=== PATIENT | male | born 1980 | race Caucasian/White ===

== ENCOUNTER 2023-01-27 14:31 | Outpatient (AMB) | payer OTHER, SELFPAY ==
--- NOTE | 2023-01-27 14:50 | MHC.OFFWIV ---
Intake Vital Signs 01/27/23 14:53 BP 134/100 H Blood Pressure Location Lt brachial Position Sitting Pulse 86 Pulse Source Pulse Oximeter Temp 97.9 F Temp Source Temporal Artery Scan Pulse Oximetry (%) 98 Oxygen Delivery Method Room Air Intake Visit Reasons: CARD CLOTHIER blood sugar 272 2 days ago, leg swelling,dizzy Intake Note: Patient here for elevated blood sugar which was checked last , right lower leg swelling. Patient Tobacco Use Status: Never used Tobacco Allergies sulfamethoxazole [From Bactrim] Adverse Reaction (Mild, Verified 01/27/23 15:45) Palpitations trimethoprim [From Bactrim] Adverse Reaction (Mild, Verified 01/27/23 15:45) Palpitations Medication List - Last Reconciled 01/27/23 by Shad Harvey MD metformin 500 mg PO BID Do you need a note to return to daycare/school/sports/work: No HPI CARD CLOTHIER blood sugar 272 2 days ago, leg swelling,dizzy HPI Details 42-year-old male presents to the office for a sick visit. Patient reports that he is having increased thirst and frequency of urination. Complaining of increased pain in the right leg. PFSH Social History Patient Tobacco Use Status: Never used Tobacco Physical Exam Vital Signs: Last Vital Signs Temp 97.9 F 01/27/23 14:53 Pulse 86 01/27/23 14:53 BP 134/100 H 01/27/23 14:53 Pulse Ox 98 01/27/23 14:53 Oxygen Delivery Method Room Air 01/27/23 14:53 Const General: cooperative and healthy appearing Nutritional Appearance: well nourished Orientation/consciousness: patient oriented x3 Limitations: no limitations HEENT Head: Yes normal to inspection Eyes General: appearance normal, both eyes and all related structures Neck Neck: Yes normal visual inspection Chest Chest palpation & inspection: normal palpation of entire chest wall Resp Effort & Inspection: normal respiratory effort Neuro General: patient oriented x3 Results AMB Random Glucose (hemocue) AMB Random Glucose (hemocue) 291 mg/dL Last Edit by MIKEY Proctor on 01/27/23 15:06 Results Reviewed Results Reviewed: Laboratory Last Values Random Glu (Clinic) 291 mg/dL 01/27/23 15:04 Assessment & Plan Assessment & Plan (1) Type 2 diabetes mellitus without complications: Code(s): E11.9 - Type 2 diabetes mellitus without complications Plan: Metformin called in. Glucometer called in. Counseling on the disease done. Patient is new onset diabetic. Random blood sugar was 272. He has an appointment with [facility]. Orders: Orders AMB Random Glucose (hemocue) Today Z13.9 - Encounter for screening, unspecified Medications: New metformin 500 mg PO BID 60 tabs 0RF Coding Level of Care Code Est Pt Level 4 (58735) Diagnoses Type 2 diabetes mellitus without complications E11.9
[2023-01-27 14:53] VITALS: BP 134/100; PULSE 86; TEMP 36.6; O2SAT 98
== END 2023-01-27 15:39 | disposition home or self-care (01) ==
PROVIDERS: Visit Provider Internal Medicine
DX: E11.9 Type 2 diabetes mellitus without complications (principal)
CPT/HCPCS: 82948; 99214

== ENCOUNTER 2023-03-12 11:02 | Outpatient (AMB) | payer OTHER, SELFPAY ==
[2023-03-12 11:08] VITALS: BP 148/88; PULSE 81; RESP 16; TEMP 36.7; O2SAT 98; BMI 43.5
--- NOTE | 2023-03-12 11:08 | MHC.PC.OV ---
Vital Signs 03/12/23 11:08 03/12/23 12:05 Height 5 ft 10 in Weight 303 lb 6 oz BMI 43.5 BP 148/88 H 158/80 H Blood Pressure Location Lt brachial Rt brachial Position Sitting Sitting Respiration 16 Pulse 81 Pulse Source Pulse Oximeter Temp 98.1 F Temp Source Oral Pulse Oximetry (%) 98 Oxygen Delivery Method Room Air Intake Visit Reasons: est care Intake Note: Patient is here as new patient, with question of diabetes. He saw Dr. Ha in walk in. Allergies sulfamethoxazole [From Bactrim] Adverse Reaction (Mild, Verified 03/12/23 12:00) Palpitations trimethoprim [From Bactrim] Adverse Reaction (Mild, Verified 03/12/23 12:00) Palpitations Medication List - Last Reconciled 03/12/23 by Lanny Bro CNP metformin 500 mg PO BID Tobacco use date assessed: 03/12/23 Dental Screening Dental Screen Date: 03/12/23 Did you have a dental visit in the last 12 months?: No Did you have a dental problem in the last 6 months where you did not have access to dental care?: No Was dental information given to patient?: Yes HPI HPI Comments History of Present Illness Details 42-year-old male presents to [facility] care. He notes he has note been evaluated by a PCP in the past 10 years. He has not had blood work done in over 10 years. He has h/o diabetes. He was evaluated at [facility] walk-in clinic on 01/27/2023 for increased thirst, frequency of urination, and increased pain in his right leg. He was diagnosed with diabetes and was prescribed metformin 500 mg twice daily. He notes he has been taking the medication as prescribed. He offers no complaint and denies acute symptoms. 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 1. Little interest or pleasure in doing things: not at all 2. Feeling down, depressed, or hopeless: not at all 3. Trouble falling or staying asleep, or sleeping too much: not at all 4. Feeling tired or having little energy: not at all 5. Poor appetite or overeating: not at all 6. Feeling bad about yourself - or that you are a failure or have let yourself or your family down: not at all 7. Trouble concentrating on things, such as reading the newspaper or watching television: not at all 8. Moving or speaking so slowly that other people could have noticed. Or the opposite - being so fidgety or restless that you have been moving around a lot more than usual: not at all 9. Thoughts that you would be better off or of hurting yourself in some way: not at all Total score: 0 Source: Developed by Drs. Fran Pastrana, Ana Urbina, Abe Gaitan and colleagues, with an educational deann from [employer] Thrive Questionnaire I am a: Patient What is your living situation today?: I have a steady place to live Within the past 12 months, did the food you bought not last and you didn't have the money to get more?: Never true Within the past 12 months, did you worry whether your food would run out before you got money to buy more?: Never true Do you have trouble paying for medicines?: No Do you have trouble getting transportation to medical appointments?: No Do you have trouble paying your heating and electricity bill?: No Do you have trouble taking care of your child, family member or friend?: No Do you have trouble with day-to-day activities such as bathing, preparing meals, shopping, managing finances, etc.?: No Are you currently unemployed and looking for a job?: No Are you interested in more education?: No AUDIT C Alcohol Use Questionnaire (AUDIT-C) 1. How often do you have a drink containing alcohol?: Monthly or less 2. How many drinks containing alcohol do you have on a typical day when you are drinking?: 1 or 2 3. How often do you have six or more drinks on one occasion?: Never Total Score: 1 URIEL-7 AMB Questionnaire URIEL-7 Date URIEL - 7 assessed: 03/12/23 Feeling nervous, anxious, or on edge: 0 = Not at all Not being able to stop or control worryin = Not at all Worrying too much about different things: 0 = Not at all Trouble relaxin = Not at all Being so restless that it is hard to sit still: 0 = Not at all Becoming easily annoyed or irritable: 0 = Not at all Feeling afraid as if something awful might happen: 0 = Not at all Total URIEL-7 score (0-4 normal; 5-9 mild; 10-14 moderate; 15-21 severe): 0 Source: Developed by Drs. Fran Pastrana, Ana Urbina, Abe Gaitan and colleagues, with an educational deann from [employer] Review of Systems Const Details: Const Denies chills, Denies fatigue, Denies fever(s), Denies headache(s) and Denies weakness ENT Denies dizziness and Denies headache(s) Card Denies chest pain, Denies lightheadedness, Denies dyspnea and Denies other (Palpitations) Resp Denies cough, Denies dyspnea, Denies wheezing and Denies other ( shortness of breath) GI Denies abdominal pain, Denies melena, Denies hematochezia, Denies change in bowel habits, Denies dyspepsia and Denies nausea Denies hematuria and Denies dysuria Musc Denies abnormal gait, Denies myalgias, Denies arthralgias, Denies numbness and Denies tingling Skin/Breast Denies rash, Denies unusual bruising and Denies wounds Neuro Denies abnormal gait, Denies dizziness, Denies headache(s), Denies memory loss, Denies numbness, Denies Sensory deficit (Neuro), Denies tingling and Denies weakness Psych Denies anxiety, Denies depression, Denies memory loss Endo Denies cold intolerance, Denies fatigue, Denies heat intolerance, Denies polydipsia and Denies polyuria Aller/Immun Denies wheezing Physical exam (Primary Care) Vital Signs: Last Vital Signs Temp 98.1 F 03/12/23 11:08 Pulse 81 03/12/23 11:08 Resp 16 03/12/23 11:08 BP 148/88 H 09/07/23 11:08 Pulse Ox 98 03/12/23 11:08 Oxygen Delivery Method Room Air 03/12/23 11:08 BMI result Body Mass Index 43.5 Tobacco/Smoking Status: Tobacco use Status Tobacco use date assessed 03/12/23 03/12/23 11:27 Patient Tobacco Use Status Never used Tobacco 03/12/23 11:12 e-Cigarette/Vaping Use Never Used 03/12/23 11:27 PHQ-9: PHQ-9 Score PHQ-9: Total score 0 03/12/23 11:27 Const Other: General: no acute distress and well developed Nutritional Appearance: well nourished Orientation/consciousness: patient oriented x3 HENMT Head: Yes normocephalic and Yes atraumatic Eyes General: appearance normal, both eyes and all related structures Pupils: Equal, round and reactive pupils present EOM: EOMs intact bilaterally Resp Effort & Inspection: normal respiratory effort Auscultation: clear to auscultation bilaterally Cardio Rate: regular rate Rhythm: regular rhythm Heart sounds: S1 normal heart sound present, S2 normal heart sound present, no gallops, no murmurs and no rubs GI Palpation (GI): No Abdominal aortic bruit present, Soft to palpation, nontender, No hepatosplenomegaly present and No Rebound tenderness present Auscultation: normal bowel sounds General: Yes no CVA tenderness Back/Spine/Pelvis Back: no CVA tenderness Cervical Spine: cervical ROM normal and No Cervical spine tenderness Thoracic/Lumbar Spine: thoraco-lumbar ROM normal, No pain with thoraco-lumbar ROM, No thoracic spinal tenderness and No lumbar spinal tenderness Extrem General: Yes normal to inspection, No edema and No calf tenderness Skin General: warm and dry. Normal skin color. Normal skin turgor Lesions: no lesions Rashes: no rashes Trauma: no lacerations or abrasions Wounds: no wounds Nails: normal Neuro General: patient oriented x3, gait normal and no focal neuro deficit Cranial nerves: Yes Equal, round and reactive pupils present Cognition (Neuro): normal cognition Gait exam (Neuro): Normal gait present Sensory Exam: No Sensory deficit (Neuro) Psych Appearance: grossly normal Affect: normal affect Attitude: cooperative Thought process: Normal thought process present Results AMB Hemoglobin A1c AMB Hemoglobin A1c 10 % Last Edit by Jinny Wiggins CMA on 03/12/23 11:57 Assessment and Plan Assessment & Plan (1) Type 2 diabetes mellitus without complications: Code(s): E11.9 - Type 2 diabetes mellitus without complications Qualifiers: Diabetes mellitus [facility] insulin use: without [facility] use Qualified Code(s): E11.9 - Type 2 diabetes mellitus without complications Plan: His A1c today is 10.0%, above goal of less than 7.0% Trulicity ordered. Administer as prescribed Continue to take metformin as prescribed ADA diet and routine exercise encouraged Glucometer and supplies ordered. Advised to check his fasting and random blood sugar daily, record readings, and bring to next appointment Nutrition/dietitian referral made Referred to the nurse navigator for diabetes education Follow-up in 1 month or return sooner with symptoms or concerns Verbalized understanding and agreed with treatment plan. (2) Hypertension: Code(s): I10 - Essential (primary) hypertension Qualifiers: Hypertension type: primary hypertension Qualified Code(s): I10 - Essential (primary) hypertension Plan: Blood pressure is 150/80, above goal of less than 130/80 Lisinopril ordered. Take as prescribed Low-sodium diet and routine exercise encouraged Follow-up in 1 week with the nurse for blood pressure check in 1 month with PCP Return sooner with symptoms or concerns Verbalized understanding and agreed with treatment plan. (3) Laboratory tests ordered as part of a complete physical exam (CPE): Code(s): Z00.00 - Encounter for general adult medical examination without abnormal findings Plan: Fasting labs ordered as part of a complete physical exam. Advised to fast for at least 10 hours before getting labs drawn. May drink water Verbalized understanding and agreed with treatment plan. Orders: Orders AMB Hemoglobin A1c Today Z13.9 - Encounter for screening, unspecified Comprehensive [place]. Panel Fast Today E11.9 - Type 2 diabetes mellitus without complications, I10 - Essential (primary) hypertension, Z00.00 - Encounter for general adult medical examination without abnormal findings TSH reflex Free T4 Today Z00.00 - Encounter for general adult medical examination without abnormal findings UA CC w/rflx Micro + Cult Today E11.9 - Type 2 diabetes mellitus without complications Microalbumin, Random (w Creat) Today E11.9 - Type 2 diabetes mellitus without complications Lipid Panel Today Z00.00 - Encounter for general adult medical examination without abnormal findings AMB Hemoglobin A1c Today Z13.9 - Encounter for screening, unspecified Complete Blood Count Auto Diff Today E11.9 - Type 2 diabetes mellitus without complications, I10 - Essential (primary) hypertension, Z00.00 - Encounter for general adult medical examination without abnormal findings Referrals Nurse Navigator Referral E11.9 - Type 2 diabetes mellitus without complications Nutrition/Dietitian Referral E11.9 - Type 2 diabetes mellitus without complications Medications: New blood sugar diagnostic (FreeStyle Lite Strips) As directed TID 100 ea 4RF diabetes dulaglutide (Trulicity) 0.75 mg (0.5 mL) subcut QWEEK 30 days 2.5 mL 3RF blood-glucose meter (FreeStyle Lite Meter kit) As directed 1 ea 0RF diabetes lancets (FreeStyle Lancets) As directed 100 ea 4RF diabetes lisinopril 10 mg PO DAILY 30 tabs 3RF 30 days Coding Level of Care Code New Pt Level 3 (74295) Diagnoses Type 2 diabetes mellitus without complication, without long-term current use of insulin E11.9 Diabetes mellitus [facility] insulin use: without [facility] use Primary hypertension I10 Hypertension type: primary hypertension Laboratory tests ordered as part of a complete physical exam (CPE) Z00.00
[2023-03-12 12:05] VITALS: BP 158/80
== END 2023-03-12 12:35 | disposition home or self-care (01) ==
PROVIDERS: Visit Provider Nurse Practitioner Family
DX: E11.9 Type 2 diabetes mellitus without complications (principal); I10 Essential (primary) hypertension
CPT/HCPCS: 83036; 99203

== ENCOUNTER 2023-04-08 09:27 | Outpatient (REF) | payer OTHER, SELFPAY ==
[2023-04-08 11:13] LABS: MANUAL DIFF FLAG NO
[2023-04-08 11:25] LABS: Appearance Urine Clear; Color Urine Yellow; Glucose Urine UA 250 mg/dL (Negative); Leukocyte Esterase Urine Negative (Negative); Nitrite Urine Negative (Negative); Specific Gravity - Urine 1.015 (1.005-1.025); Urine Blood Negative (Negative); Urine Ketones Negative (Negative); Urine Protein Negative (Neg-Trace)
[2023-04-08 11:36] LABS: Basophils Percent Auto 0.4 % (0-2); Eosinophils Absolute Auto 0.1 X10*3/uL (0.0-0.4); Eosinophils Percent Auto 1.4 % (0-4); Hematocrit 47.4 % (42.0-52.0); Hemoglobin 15.2 g/dl (14.0-18.0); Imm Gran Abs Auto 0.02 X10*3/uL (0.00-0.03); Imm Gran Pct Auto 0.3 % (0.0-0.4); Lymphocytes Absolute Auto 1.7 X10*3/uL (1.2-4.9); Lymphocytes Percent Auto 22.3 % (20-40); Mean Corpuscular HGB Conc 32.1 g/dl (31.0-36.0); Mean Corpuscular Hemoglobin 27.5 pg (27.0-33.0); Mean Corpuscular Volume 85.9 fL (80.0-98.0); Mean Platelet Volume 13.1 fL (9.4-12.4); Monocytes Absolute Auto 0.5 X10*3/uL (0.1-1.2); Monocytes Percent Auto 6.6 % (2-11); Neutrophils Absolute Auto 5.4 x10*3/uL (2.0-8.3); Platelet Count 164 X10*3/uL (160-400); Red Blood Count 5.52 X10*6/uL (4.60-5.80); White Blood Count 7.8 X10*3/uL (4.8-10.8)
[2023-04-08 12:07] LABS: Alanine Aminotransferase 27 U/L (0-40); Albumin Level 4.2 g/dL (3.5-5.0); Alkaline Phosphatase 45 U/L (39-117); Anion Gap 11 (12-20); Aspartate Amino Transferase 17 U/L (5-37); Bilirubin Total 0.6 mg/dL (0.0-1.0); Blood Urea Nitrogen 16 mg/dL (9-16); Calcium 9.5 mg/dL (8.4-10.2); Carbon Dioxide 22 mmol/L (22-29); Chloride 109 mmol/L (96-108); Cholesterol 137 mg/dL (<200); Estimated Glomerular Filt Rate > 60; Glucose Fasting 160 mg/dL (60-99); HDL Cholesterol 37 mg/dL (>40); LDL Cholesterol Calculated 79 mg/dL (<100); Potassium 3.9 mmol/L (3.3-5.1); Sodium 138 mmol/L (135-145); Total Protein 6.8 g/dL (6.5-8.0); Triglycerides 109 mg/dL (<150)
[2023-04-08 12:15] LABS: TSH reflex Free T4 1.44 uIU/mL (0.32-4.0)
[2023-04-08 12:27] LABS: Microalbum/Creatinine Ratio Ur 19.6 ug/mg cr (<30)
== END 2023-04-08 09:28 | disposition home or self-care (01) ==
LOC: HO.WFDLDS 09:27
PROVIDERS: Visit Provider Nurse Practitioner Family
DX: Z00.00 Encounter for general adult medical examination without abnormal findings (principal); E11.9 Type 2 diabetes mellitus without complications; I10 Essential (primary) hypertension
CPT/HCPCS: 36415; 80053; 80061; 81003; 82043; 82570; 84443; 85025

== ENCOUNTER 2023-04-13 12:20 | Outpatient (AMB) | payer OTHER, SELFPAY ==
--- NOTE | 2023-04-13 12:22 | MHC.PC.OV ---
Vital Signs 04/13/23 12:24 Height 5 ft 10 in Weight 297 lb BMI 42.6 BP 130/78 Blood Pressure Location Rt brachial Position Sitting Respiration 20 Pulse 73 Pulse Source Pulse Oximeter Temp 98.1 F Temp Source Oral Pulse Oximetry (%) 96 Intake Visit Reasons: F/Up HTN, DM Intake Note: Patient is here to follow up on hypertension and diabetes. Allergies sulfamethoxazole [From Bactrim] Adverse Reaction (Mild, Verified 04/13/23 12:46) Palpitations trimethoprim [From Bactrim] Adverse Reaction (Mild, Verified 04/13/23 12:46) Palpitations Medication List - Last Reconciled 04/13/23 by Lanny Bro CNP blood sugar diagnostic (FreeStyle Lite Strips) As directed TID blood-glucose meter (FreeStyle Lite Meter kit) As directed dulaglutide (Trulicity) 0.75 mg (0.5 mL) subcut QWEEK 30 days lancets (FreeStyle Lancets) As directed lisinopril 20 mg PO DAILY 30 days metformin 500 mg PO BID Tobacco use date assessed: 04/13/23 HPI HPI Comments History of Present Illness Details 42-year-old male presents for hypertension and diabetes follow-up. He was diagnosed with diabetes at the [place] walk-in clinic in January 2023 He established care a month ago. His A1c was 10.0%. Trulicity was added to his diabetic regimen. He was diagnosed with hypertension and prescribed lisinopril. He is on metformin. He was referred to specimen technician/dietitian and nurse navigator. He admits to taking his medications as prescribed with no adverse reactions. He has also been monitoring his glucose at home which averages in 100s to a little over 200. He has no acute symptoms at this time. He states that he was seen by the nurse navigator who provided Diabetes Education. He notes that he has not been contacted by [facility] dietitian/nutrition He states that he has never had an eye exam. 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 Fran Pastrana, Ana Urbina, Abe Gaitan and colleagues, with an educational deann from [employer]. Review of Systems Const Details: Const Denies chills, Denies fatigue, Denies fever(s), Denies headache(s) and Denies weakness ENT Denies dizziness and Denies headache(s) Card Denies chest pain, Denies lightheadedness, Denies dyspnea and Denies other (Palpitations) Resp Denies cough, Denies dyspnea, Denies wheezing and Denies other ( shortness of breath) GI Denies abdominal pain, Denies melena, Denies hematochezia, Denies change in bowel habits, Denies dyspepsia and Denies nausea Denies hematuria and Denies dysuria Musc Denies abnormal gait, Denies myalgias, Denies arthralgias, Denies numbness and Denies tingling Skin/Breast Denies rash, Denies unusual bruising and Denies wounds Neuro Denies abnormal gait, Denies dizziness, Denies headache(s), Denies memory loss, Denies numbness, Denies Sensory deficit (Neuro), Denies tingling and Denies weakness Psych Denies anxiety, Denies depression, Denies memory loss Endo Denies cold intolerance, Denies fatigue, Denies heat intolerance, Denies polydipsia and Denies polyuria Aller/Immun Denies wheezing Physical exam (Primary Care) Vital Signs: Last Vital Signs Temp 98.1 F 04/13/23 12:24 Pulse 73 04/13/23 12:24 Resp 20 04/13/23 12:24 BP 130/78 04/13/23 12:24 Pulse Ox 96 04/13/23 12:24 BMI result Body Mass Index 42.6 Tobacco/Smoking Status: Tobacco use Status Tobacco use date assessed 04/13/23 04/13/23 12:28 Patient Tobacco Use Status Never used Tobacco 04/13/23 12:22 e-Cigarette/Vaping Use Never Used 04/13/23 12:22 Const Other: General: no acute distress and well developed Nutritional Appearance: well nourished Orientation/consciousness: patient oriented x3 [facility] Head: Yes normocephalic and Yes atraumatic Eyes General: appearance normal, both eyes and all related structures Pupils: Equal, round and reactive pupils present EOM: EOMs intact bilaterally Resp Effort & Inspection: normal respiratory effort Auscultation: clear to auscultation bilaterally Cardio Rate: regular rate Rhythm: regular rhythm Heart sounds: S1 normal heart sound present, S2 normal heart sound present, no gallops, no murmurs and no rubs GI Palpation (GI): No Abdominal aortic bruit present, Soft to palpation, nontender, No hepatosplenomegaly present and No Rebound tenderness present Auscultation: normal bowel sounds General: Yes no CVA tenderness Back/Spine/Pelvis Back: no CVA tenderness Cervical Spine: cervical ROM normal and No Cervical spine tenderness Thoracic/Lumbar Spine: thoraco-lumbar ROM normal, No pain with thoraco-lumbar ROM, No thoracic spinal tenderness and No lumbar spinal tenderness Extrem General: Yes normal to inspection, No edema and No calf tenderness Skin General: warm and dry. Normal skin color. Normal skin turgor Lesions: no lesions Rashes: no rashes Trauma: no lacerations or abrasions Wounds: no wounds Nails: normal Neuro General: patient oriented x3, gait normal and no focal neuro deficit Cranial nerves: Yes Equal, round and reactive pupils present Cognition (Neuro): normal cognition Gait exam (Neuro): Normal gait present Sensory Exam: No Sensory deficit (Neuro) Psych Appearance: grossly normal Affect: normal affect Attitude: cooperative Thought process: Normal thought process present Assessment and Plan Assessment & Plan (1) Type 2 diabetes mellitus without complications: Code(s): E11.9 - Type 2 diabetes mellitus without complications Qualifiers: Diabetes mellitus [employer] [facility] insulin use: without residential use Qualified Code(s): E11.9 - Type 2 diabetes mellitus without complications Plan: His A1c was 10.0% a month ago, above goal of less than 7.0% Continue to take Trulicity and metformin as prescribed ADA diet and routine exercise encouraged LDL is normal, 79 Will recheck A1c in 2 months Referred to Ophthalmology for a retinal exam Encouraged to continue to monitor blood glucose, record readings, and bring to his next appointment Follow-up with specimen technician/dietitian as scheduled Follow-up in a month for a complete physical exam Return sooner with symptoms or concerns Verbalized understanding and agreed with treatment plan. (2) Hypertension: Code(s): I10 - Essential (primary) hypertension Qualifiers: Hypertension type: primary hypertension Qualified Code(s): I10 - Essential (primary) hypertension Plan: Resting blood pressure is 130/78, slightly above goal of less than 130/80 Continue to take lisinopril as prescribed Low-sodium diet encouraged Will continue to monitor Verbalized understanding and agreed with treatment plan. (3) Morbid obesity with BMI of 40.0-44.9, adult: Code(s): E66.01 - Morbid (severe) obesity due to excess calories; Z68.41 - Body mass index [BMI] 40.0-44.9, adult Plan: Healthy diet and routine exercise encouraged He was referred to [facility] specimen technician/dietitian The MA reviewed the patient's chart and notes that the patient is scheduled with specimen technician/dietitian later this month. Patient notified Follow-up with with specimen technician/dietitian as scheduled Return with symptoms or concerns Verbalized understanding and agreed with treatment plan. (4) Low HDL (under 40): Code(s): E78.6 - Lipoprotein deficiency Plan: Recent lab results reviewed with the patient Unremarkable lab findings except for slightly low HDL level Advised to limit foods high in saturated fat and avoid foods high trans fat Routine exercise encouraged Verbalized understanding and agreed with treatment plan. Orders: Referrals Ophthalmology Referral E11.9 - Type 2 diabetes mellitus without complications Coding Level of Care Code Est Pt Level 3 (28893) Diagnoses Type 2 diabetes mellitus without complication, without long-term current use of insulin E11.9 Diabetes mellitus residential insulin use: without residential use Primary hypertension I10 Hypertension type: primary hypertension Morbid obesity with BMI of 40.0-44.9, adult E66.01; Z68.41 Low HDL (under 40) E78.6
[2023-04-13 12:24] VITALS: BP 130/78; PULSE 73; RESP 20; TEMP 36.7; O2SAT 96; BMI 42.6
== END 2023-04-13 13:07 | disposition home or self-care (01) ==
PROVIDERS: Visit Provider Nurse Practitioner Family
DX: E11.9 Type 2 diabetes mellitus without complications (principal); I10 Essential (primary) hypertension; E66.01 Morbid (severe) obesity due to excess calories; Z68.41 Body mass index [BMI] 40.0-44.9, adult; E78.6 Lipoprotein deficiency
CPT/HCPCS: 99213

== ENCOUNTER 2023-05-11 08:25 | Outpatient (AMB) | payer OTHER, SELFPAY ==
--- NOTE | 2023-05-11 08:32 | MHC.PC.OV ---
Vital Signs 05/11/23 08:33 Height 5 ft 10 in Weight 298 lb 4 oz BMI 42.8 BP 128/72 Blood Pressure Location Lt brachial Position Sitting Respiration 13 Pulse 88 Pulse Source Pulse Oximeter Temp 98.8 F Temp Source Oral Pulse Oximetry (%) 99 Oxygen Delivery Method Room Air Intake Visit Reasons: 1 month CPE Intake Note: Patient is here for a physical. Patient states he has not had a physical since high school. Patient reports no concerns for today's visit. Patient is requesting medication refills. Charge Poster Required: No Accompanied by: Self / Same As Patient Allergies sulfamethoxazole [From Bactrim] Adverse Reaction (Mild, Verified 05/11/23 08:52) Palpitations trimethoprim [From Bactrim] Adverse Reaction (Mild, Verified 05/11/23 08:52) Palpitations Medication List - Last Reconciled 05/11/23 by Lanny Bro CNP blood sugar diagnostic (FreeStyle Lite Strips) As directed TID blood-glucose meter (FreeStyle Lite Meter kit) As directed dulaglutide (Trulicity) 0.75 mg (0.5 mL) subcut QWEEK 30 days lancets (FreeStyle Lancets) As directed lisinopril 20 mg PO DAILY 30 days metformin 500 mg PO BID Tobacco use date assessed: 04/13/23 HPI HPI Comments History of Present Illness Details 42-year-old male presents for a complete physical exam. He established care in March and had routine blood work done. He has history of type 2 diabetes and hypertension. He admits to taking his medications as prescribed. He admits to making some healthy dietary choices. He denies formal exercise. He notes that he monitors his FBG and RBG and between 120-160. He offers no complaints denies acute symptoms at this time. He notes that he has not schedule an appointment with tax services specialist/dietitian and ophthalmology. 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 Cognitive needs: No Hearing needs: No Vision needs: No Questionnaire Thrive Questionnaire Date Thrive assessed: 05/11/23 I am a: Patient What is your living situation today?: I have a steady place to live Within the past 12 months, did the food you bought not last and you didn't have the money to get more?: Never true Within the past 12 months, did you worry whether your food would run out before you got money to buy more?: Never true Do you have trouble paying for medicines?: No Do you have trouble getting transportation to medical appointments?: No Do you have trouble paying your heating and electricity bill?: No Do you have trouble taking care of your child, family member or friend?: No Do you have trouble with day-to-day activities such as bathing, preparing meals, shopping, managing finances, etc.?: No Are you currently unemployed and looking for a job?: No Are you interested in more education?: No Please select the resources that you would like help with: None Currently or been in a relationship where the following occur: no concerns reported URIEL-7 AMB Questionnaire URIEL-7 Date URIEL - 7 assessed: 03/12/23 Source: Developed by Drs. Fran Pastrana, Ana Urbina, Abe Gaitan and colleagues, with an educational deann from [employer]. Review of Systems Const Details: Denies chills, Denies fatigue, Denies fever(s), Denies headache(s) and Denies weakness HEENT Denies change in vision, Denies dizziness, Denies headache(s), Denies hearing loss, Denies nasal congestion, Denies sinus pain, Denies sinus pressure and Denies sore throat Card Denies chest pain, Denies lightheadedness, Denies dyspnea and Denies other (palpitations) Resp Denies cough, Denies dyspnea and Denies wheezing GI Denies abdominal pain, Denies melena, Denies hematochezia, Denies change in bowel habits, Denies dyspepsia and Denies nausea Denies hematuria and Denies dysuria Musc Denies abnormal gait, Denies myalgias, Denies arthralgias, Denies numbness and Denies tingling Skin/Breast Denies rash, Denies unusual bruising and Denies wounds Neuro Denies abnormal gait, Denies dizziness, Denies headache(s), Denies memory loss, Denies numbness, Denies Sensory deficit (Neuro), Denies tingling and Denies weakness Psych Denies anxiety, Denies depression and Denies memory loss Endo Denies cold intolerance, Denies fatigue, Denies heat intolerance, Denies polydipsia and Denies polyuria Param/Lymph Denies easy bleeding and Denies easy bruising Aller/Immun Denies wheezing Physical exam (Primary Care) Vital Signs: Last Vital Signs Temp 98.8 F 05/11/23 08:33 Pulse 88 05/11/23 08:33 Resp 13 05/11/23 08:33 BP 128/72 05/11/23 08:33 Pulse Ox 99 05/11/23 08:33 Oxygen Delivery Method Room Air 05/11/23 08:33 BMI result Body Mass Index 42.8 Tobacco/Smoking Status: Tobacco use Status Tobacco use date assessed 04/13/23 05/11/23 08:32 Patient Tobacco Use Status Never used Tobacco 05/11/23 08:32 e-Cigarette/Vaping Use Never Used 05/11/23 08:32 Thrive Assessment: Date of Thrive Assessment Date Thrive assessed 05/11/23 05/11/23 08:49 Currently or been in a relationship where the following occur: no concerns reported Const Other: General: no acute distress, well developed, alert and awake Nutritional Appearance: well nourished Orientation/consciousness: patient oriented x3 [facility] Head: Yes normocephalic and Yes atraumatic Ears: hearing grossly normal bilaterally and TM's normal bilaterally General nose exam: Normal external nose present and Normal nares present Mouth: Normal oral and palatal mucosa present and moist mucous membranes Teeth and gingiva: dentition normal Throat: Yes oropharynx normal Eyes Pupils: Equal, round and reactive pupils present and Pupil accommodation reflex normal EOM: EOMs intact bilaterally Neck Neck: Yes normal visual inspection, Yes no lymphadenopathy and Yes trachea midline Thyroid: Thyroid normal Carotids: no bruits Lymphatic: no lymphadenopathy noted Chest Chest palpation & inspection: normal inspection of the chest Resp Effort & Inspection: normal respiratory effort Auscultation: clear to auscultation bilaterally Cardio Rate: regular rate Rhythm: regular rhythm Heart sounds: S1 normal heart sound present, S2 normal heart sound present, no gallops, no murmurs and no rubs Bruits: no abdominal aortic bruits and no carotid bruits GI Palpation (GI): No Abdominal aortic bruit present, Soft to palpation, nontender, No hepatosplenomegaly present and No Rebound tenderness present Auscultation: normal bowel sounds General: Yes no CVA tenderness Back/Spine/Pelvis Back: no CVA tenderness Cervical Spine: cervical ROM normal and No Cervical spine tenderness Thoracic/Lumbar Spine: thoraco-lumbar ROM normal, No pain with thoraco-lumbar ROM, No thoracic spinal tenderness and No lumbar spinal tenderness Skin General: warm and dry. Normal skin color. Normal skin turgor Lesions: no lesions Rashes: no rashes Trauma: no lacerations or abrasions Wounds: no wounds Nails: normal Neuro General: patient oriented x3, gait normal and CN's II-XI intact bilaterally Cranial nerves: Yes Equal, round and reactive pupils present Cognition (Neuro): normal cognition Gait exam (Neuro): Normal gait present Motor exam (neuro): 5/5 motor strength present throughout Sensory Exam: No Sensory deficit (Neuro) Deep tendon reflexes (DTR's): Right patellar reflex intensity grade: 2+ and Left patellar reflex intensity grade: 2+ Extrem General: Yes normal to inspection, No edema and No calf tenderness Psych Appearance: grossly normal Affect: normal affect Attitude: cooperative Thought process: Normal thought process present Assessment and Plan Assessment & Plan (1) Normal physical examination, routine: Code(s): Z00.00 - Encounter for general adult medical examination without abnormal findings Plan: No significant physical restrictions or limitations noted Advised to follow-up for diabetes and hypertension next month Encouraged to call and schedule appointment with tax services specialist/dietitian and marine diver Return sooner with symptoms or concerns Verbalized understanding and agreed with treatment plan. (2) Hypertension: Code(s): I10 - Essential (primary) hypertension Qualifiers: Hypertension type: primary hypertension Qualified Code(s): I10 - Essential (primary) hypertension Plan: Blood pressure is 120/72, within goal of less than 130/80 Continue to take lisinopril as prescribed Low-sodium diet and routine exercise encouraged Follow-up in 1 month or return sooner with symptoms or concerns Verbalized understanding and agreed with treatment plan. (3) Type 2 diabetes mellitus without complications: Code(s): E11.9 - Type 2 diabetes mellitus without complications Qualifiers: Diabetes mellitus penitentiary insulin use: without intermediate card tender use Qualified Code(s): E11.9 - Type 2 diabetes mellitus without complications Plan: He notes that he monitors his FBG and RBG and between 120-160. Continue with current treatment regimen ADA diet and routine exercise encouraged Follow-up next month. A1c will be checked Return sooner with symptoms or concerns Verbalized understanding and agreed with treatment plan. Medications: Changed From metformin 500 mg PO BID 60 tabs 0RF To metformin 500 mg PO BID 30 days 60 tabs 3RF Refilled lisinopril 20 mg PO DAILY 30 days 30 tabs 3RF Coding Level of Care Code Est Pt Level 3 (83852) Est Pt Prev Care 40-64y(43036) Diagnoses Normal physical examination, routine Z00.00 Primary hypertension I10 Hypertension type: primary hypertension Type 2 diabetes mellitus without complication, without long-term current use of insulin E11.9 Diabetes mellitus intermediate card tender insulin use: without penitentiary use
[2023-05-11 08:33] VITALS: BP 128/72; PULSE 88; RESP 13; TEMP 37.1; O2SAT 99; BMI 42.8
== END 2023-05-11 09:11 | disposition home or self-care (01) ==
PROVIDERS: PCP Nurse Practitioner Family; Visit Provider Nurse Practitioner Family
DX: Z00.00 Encounter for general adult medical examination without abnormal findings (principal); I10 Essential (primary) hypertension; E11.9 Type 2 diabetes mellitus without complications
CPT/HCPCS: 99396

== ENCOUNTER 2023-06-11 13:53 | Outpatient (AMB) | payer OTHER, SELFPAY ==
[2023-06-11 14:08] VITALS: BMI 42.1
--- NOTE | 2023-06-11 14:08 | A.OFFVIS_ITS ---
Intake VS Expanded 06/11/23 14:08 06/11/23 14:16 Height 5 ft 10 in 5 ft 10 in Weight 293 lb 10.491 oz 294 lb BMI 42.1 42.2 Intake Visit Reasons: DM/lvm Allergies sulfamethoxazole [From Bactrim] Adverse Reaction (Mild, Verified 06/23/23 10:19) Palpitations trimethoprim [From Bactrim] Adverse Reaction (Mild, Verified 06/23/23 10:19) Palpitations HPI Nutrition Presentation Details Pt presents for MNT for T2DM and morbid obesity. The Pt was referred by Dr. Levine, PCP Food frequency fruits: 0/d vegetables : 4 serving/wk Dairy: 4+ (cheese mostly) protein food: poultry/beef/eggs starches > 30 servings beverages: water/juice/diet sodas empty christian foods: 4+ physical activity: daily life ETOH/SMoking__-- MVI-no [facility].Jeor Equation Height 5 ft 10 in Weight 294 lb Resting Metabolic Rate 2246.76 Calculated Activity Level Sedentary Calories Needed to Maintain Weight 2696.11 Diagnosis Nutrition problem #1 food nutri know defi As related to (etiology) #1 diagnosis As evidenced by (sign/symptom) #1 no prior educ - nutri rec Monitoring/Goals Nutrition problem monitoring level of knowledge/skill, total CHO intake and weight Nutrition goal/outcome list 3 CHO foods and wt loss 5lbs in 2 months Outcome progress verbalized understanding Learning/Education Stages of change preparation Educational materials provided Yes (meal planning) Most Recent Diabetes Results: Microalb/Creat Ratio 19.6 ug/mg cr (<30) 04/08/23 Cholesterol 137 mg/dL (<200) 04/08/23 HDL Cholesterol 37 mg/dL (>40) L 04/08/23 Triglycerides 109 mg/dL (<150) 04/08/23 Creatinine 0.90 mg/dL (0.5-1.4) 04/08/23 Blood Urea Nitrogen 16 mg/dL (9-16) 04/08/23 Sodium 138 mmol/L (135-145) 04/08/23 Potassium 3.9 mmol/L (3.3-5.1) 04/08/23 Chloride 109 mmol/L (96-108) H 04/08/23 Carbon Dioxide 22 mmol/L (22-29) 04/08/23 Calcium 9.5 mg/dL (8.4-10.2) 04/08/23 AST 17 U/L (5-37) 04/08/23 ALT 27 U/L (0-40) 04/08/23 Total Protein 6.8 g/dL (6.5-8.0) 04/08/23 Albumin 4.2 g/dL (3.5-5.0) 04/08/23 PFSH Medical History Type 2 diabetes mellitus Surgical History No pertinent past surgical history Family History Brother Diabetes Paternal Grandmother Diabetes Father Diabetes Social History Housing: Apartment Patient Tobacco Use Status: Never used Tobacco e-Cigarette/Vaping Use: Never Used service: No Current occupational status: employed 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 Cognitive needs: No Hearing needs: No Vision needs: No Assessment & Plan Assessment & Plan (1) Type 2 diabetes mellitus without complications: Code(s): E11.9 - Type 2 diabetes mellitus without complications Qualifiers: Diabetes mellitus cash accounting clerk insulin use: without long-term use Qualified Code(s): E11.9 - Type 2 diabetes mellitus without complications Plan: wt: 134 kg ( 06/2023) Est kcal needs as per MSJ: 2700 (40% carb, 30% protein/fat) Est fluid needs as per 30 ml/d:4000 Est prot per day as per 1 g/kg bw: 134 Recommend fiber intake : 8-10 g per day and gradually increase to 25-28 g per day for women and 35-38 g for men or as tolerated Recommend sodium intake per day : less than 2000 mg Educated patient on: ( R = reviewed V = verbalizes understanding N/R = needs review N/A = not applicable * Food sources of carbohydrate, adequate serving sizes and its role in various health conditions: R * Differences between complex carbohydrates a simple carbohydrates, role of fiber in diet: R * Differences between types of fats and role in diet (mono on saturated fat fatty acids, saturated fatty acids, trans fats): NR * Food sources of sodium in salt and healthy modifications for heart health in kidney health: NR * Vitamins and minerals: R * Healthy plate method concept: R * Physical activity: Benefits a precaution: R * Hypoglycemia protocol (rule of 15): NR * Dietary prevention of Hyperglycemia: R (2) Morbid obesity with BMI of 40.0-44.9, adult: Code(s): E66.01 - Morbid (severe) obesity due to excess calories; Z68.41 - Body mass index [BMI] 40.0-44.9, adult Plan Work on reducing total carbs to less than 90 g at meals (3 per day ) and 0-20 g as snack no more than 2 a day Patient Instructions: Work on reducing total carbohydrate per meal to 90g following healthy plate meth od read food labels Keep hydrated by having water with meals/snack practice mindful eating strategies Coding Level of Care Code Nutr Indiv Intake (10281) Diagnoses Type 2 diabetes mellitus without complication, without long-term current use of insulin E11.9 Diabetes mellitus cash accounting clerk insulin use: without long-term use Morbid obesity with BMI of 40.0-44.9, adult E66.01; Z68.41 Time Spent (min) 40
[2023-06-23 14:57] VITALS: BMI 42.2
== END 2023-06-11 14:44 | disposition home or self-care (01) ==
PROVIDERS: PCP Nurse Practitioner Family; Visit Provider Dietitian, Registered
DX: E11.9 Type 2 diabetes mellitus without complications (principal); E66.01 Morbid (severe) obesity due to excess calories; Z68.41 Body mass index [BMI] 40.0-44.9, adult

== ENCOUNTER → 2023-06-11 13:53 | Outpatient (BNVA) | payer OTHER, SELFPAY | PROVIDERS: PCP Nurse Practitioner Family; Visit Provider Dietitian, Registered | DX: E11.9 Type 2 diabetes mellitus without complications (principal); E66.01 Morbid (severe) obesity due to excess calories; Z68.41 Body mass index [BMI] 40.0-44.9, adult; Z71.3 Dietary counseling and surveillance | CPT/HCPCS: 97802 ==

== ENCOUNTER 2023-06-23 09:56 | Outpatient (AMB) | payer OTHER, SELFPAY ==
[2023-06-23 10:03] VITALS: BP 126/74; PULSE 91; RESP 13; TEMP 36.5; O2SAT 99; BMI 42.2
--- NOTE | 2023-06-23 10:03 | A.OFFPC_ITS ---
Vital Signs 06/23/23 10:03 Height 5 ft 10 in Weight 294 lb 4 oz BMI 42.2 BP 126/74 Blood Pressure Location Rt brachial Position Sitting Respiration 13 Pulse 91 Pulse Source Pulse Oximeter Temp 97.7 F Temp Source Temporal Artery Scan Pulse Oximetry (%) 99 Oxygen Delivery Method Room Air Intake Visit Reasons: DM, HTN Neck Pinner Required: No Accompanied by: Self / Same As Patient Allergies sulfamethoxazole [From Bactrim] Adverse Reaction (Mild, Verified 06/23/23 10:19) Palpitations trimethoprim [From Bactrim] Adverse Reaction (Mild, Verified 06/23/23 10:19) Palpitations Medication List - Last Reconciled 06/23/23 by Lanny Bro CNP blood sugar diagnostic (FreeStyle Lite Strips) As directed TID blood-glucose meter (FreeStyle Lite Meter kit) As directed dulaglutide (Trulicity) 0.75 mg (0.5 mL) subcut QWEEK 30 days lancets (FreeStyle Lancets) As directed lisinopril 20 mg PO DAILY 30 days metformin 500 mg PO BID 30 days Tobacco use date assessed: 04/13/23 Dental Screening Dental Screen Date: 06/23/23 Did you have a dental visit in the last 12 months?: No Did you have a dental problem in the last 6 months where you did not have access to dental care?: No Was dental information given to patient?: Yes HPI HPI Comments History of Present Illness Details 42-year-old male presents for hypertensi on and diabetes follow-up His last A1c in 03/12/2023 was 10.0% He admits to taking his medications as prescribed without adverse reactions He offers no complaints and denies acute symptoms at this time He spoke with the nurse navigator. He is currently followed by 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 Fran Pastrana, Ana Urbina, Abe Gaitan and colleagues, with an educational deann from [employer]. Review of Systems Const Details: Const Denies chills, Denies fatigue, Denies fever(s), Denies headache(s) and Denies weakness ENT Denies dizziness and Denies headache(s) Card Denies chest pain, Denies lightheadedness, Denies dyspnea and Denies other (Palpitations) Resp Denies cough, Denies dyspnea, Denies wheezing and Denies other ( shortness of breath) GI Denies abdominal pain, Denies melena, Denies hematochezia, Denies change in bowel habits, Denies dyspepsia and Denies nausea Denies hematuria and Denies dysuria Musc Denies abnormal gait, Denies myalgias, Denies arthralgias, Denies numbness and Denies tingling Skin/Breast Denies rash, Denies unusual bruising and Denies wounds Neuro Denies abnormal gait, Denies dizziness, Denies headache(s), Denies memory loss, Denies numbness, Denies Sensory deficit (Neuro), Denies tingling and Denies weakness Psych Denies anxiety, Denies depression, Denies memory loss Endo Denies cold intolerance, Denies fatigue, Denies heat intolerance, Denies polydipsia and Denies polyuria Aller/Immun Denies wheezing Physical exam (Primary Care) Vital Signs: Last Vital Signs Temp 97.7 F 06/23/23 10:03 Pulse 91 06/23/23 10:03 Resp 13 06/23/23 10:03 BP 126/74 06/23/23 10:03 Pulse Ox 99 06/23/23 10:03 Oxygen Delivery Method Room Air 06/23/23 10:03 BMI result Body Mass Index 42.2 Tobacco/Smoking Status: Tobacco use Status Tobacco use date assessed 04/13/23 06/23/23 10:14 Patient Tobacco Use Status Never used Tobacco 06/23/23 10:14 e-Cigarette/Vaping Use Never Used 06/23/23 10:14 Thrive Assessment: Date of Thrive Assessment Date Thrive assessed 05/11/23 06/23/23 10:14 Const Other: General: no acute distress and well developed Nutritional Appearance: well nourished Orientation/consciousness: patient oriented x3 [facility]EN[facility] Head: Yes normocephalic and Yes atraumatic Eyes General: appearance normal, both eyes and all related structures Pupils: Equal, round and reactive pupils present EOM: EOMs intact bilaterally Resp Effort & Inspection: normal respiratory effort Auscultation: clear to auscultation bilaterally Cardio Rate: regular rate Rhythm: regular rhythm Heart sounds: S1 normal heart sound present, S2 normal heart sound present, no gallops, no murmurs and no rubs GI Palpation (GI): No Abdominal aortic bruit present, Soft to palpation, nontender, No hepatosplenomegaly present and No Rebound tenderness present Auscultation: normal bowel sounds General: Yes no CVA tenderness Back/Spine/Pelvis Back: no CVA tenderness Cervical Spine: cervical ROM normal and No Cervical spine tenderness Thoracic/Lumbar Spine: thoraco-lumbar ROM normal, No pain with thoraco-lumbar ROM, No thoracic spinal tenderness and No lumbar spinal tenderness Extrem General: Yes normal to inspection, No edema and No calf tenderness Skin General: warm and dry. Normal skin color. Normal skin turgor Lesions: no lesions Rashes: no rashes Trauma: no lacerations or abrasions Wounds: no wounds Nails: normal Neuro General: patient oriented x3, gait normal and no focal neuro deficit Cranial nerves: Yes Equal, round and reactive pupils present Cognition (Neuro): normal cognition Gait exam (Neuro): Normal gait present Sensory Exam: No Sensory deficit (Neuro) Psych Appearance: grossly normal Affect: normal affect Attitude: cooperative Thought process: Normal thought process present Results AMB Hemoglobin A1c AMB Hemoglobin A1c 6.7 % Last Edit by Dinorah Lopez MA on 06/23/23 10:31 Assessment and Plan Assessment & Plan (1) Type 2 diabetes mellitus without complications: Code(s): E11.9 - Type 2 diabetes mellitus without complications Qualifiers: Diabetes mellitus skilled nursing insulin use: without skilled nursing use Qualified Code(s): E11.9 - Type 2 diabetes mellitus without complications Plan: A1c today is 6.7%, within goal of less than 7.0%. Previous A1c was 10.0% Recent LDL is 72 and HDL is 37 Recent urine microalbumin/creatinine ratio is 19.0% Continue current treatment regimen Advised to limit foods high in saturated fat and avoid foods high trans fat Routine exercise encouraged Continue follow-up with diesel trailer mechanic/dietitian as planned Encouraged to schedule ophthalmology appointment with Ophthalmology Will recheck lipid panel. Advised to fast for 10-12 hours, may drink water only, and get blood work done before his next visit Follow-up in 3 months or return sooner with symptoms or concerns Verbalized understanding and agreed with treatment plan (2) Hypertension: Code(s): I10 - Essential (primary) hypertension Qualifiers: Hypertension type: primary hypertension Qualified Code(s): I10 - Essential (primary) hypertension Plan: Blood pressure is 126/74, within goal of less than 130/80 Continue to take lisinopril as prescribed Low-sodium diet encouraged Follow-up in 3 months Verbalized understanding and agreed with treatment plan Orders: Orders Hemoglobin A1c Today E11.9 - Type 2 diabetes mellitus without complications Lipid Panel 3 Months E11.9 - Type 2 diabetes mellitus without complications Coding Level of Care Code Est Pt Level 3 (99888) Diagnoses Type 2 diabetes mellitus without complication, without long-term current use of insulin E11.9 Diabetes mellitus financial services agent insulin use: without skilled nursing use Primary hypertension I10 Hypertension type: primary hypertension
== END 2023-06-23 10:37 | disposition home or self-care (01) ==
PROVIDERS: PCP Nurse Practitioner Family; Visit Provider Nurse Practitioner Family
DX: E11.9 Type 2 diabetes mellitus without complications (principal); I10 Essential (primary) hypertension
CPT/HCPCS: 83036; 99213

== ENCOUNTER 2023-08-18 09:30 | Outpatient (AMB) | payer OTHER, SELFPAY ==
[2023-08-18 09:35] VITALS: BMI 42.5
--- NOTE | 2023-08-18 09:35 | A.OFFVIS_ITS ---
Intake VS Expanded 08/18/23 09:35 Height 5 ft 10 in Weight 296 lb 8.348 oz BMI 42.5 Intake Visit Reasons: t2dm/CONFIRMED Allergies sulfamethoxazole [From Bactrim] Adverse Reaction (Mild, Verified 06/23/23 10:19) Palpitations trimethoprim [From Bactrim] Adverse Reaction (Mild, Verified 06/23/23 10:19) Palpitations HPI Nutrition Presentation Details Pt presents for MNT f/u for T2DM dx around 03/2023. Pt reports working on having 3 meals per day , choosing lower sugar snacks, often higher in protein. Pt reports having long hx of working on weight loss. Pt reports he was >350 lbs over 10 yrs ago. Typical meal pattern B: oatmeal or cereal 2 % (choosing low sugar cereals) L: mixed nuts, water (chips, peanut butter crackers, cheese crackers ) Dinner : home made meal chicken , turkey, potato , baked [place] fries, ketchup (no sugar added) Not including non starchy vegetables physical activity: none additional to that at work ETOH: -- smoking -denies BG- not monitoring , has glucometer Most Recent Diabetes Results: Microalb/Creat Ratio 19.6 ug/mg cr (<30) 04/08/23 Cholesterol 137 mg/dL (<200) 04/08/23 HDL Cholesterol 37 mg/dL (>40) L 04/08/23 Triglycerides 109 mg/dL (<150) 04/08/23 Creatinine 0.90 mg/dL (0.5-1.4) 04/08/23 Blood Urea Nitrogen 16 mg/dL (9-16) 04/08/23 Sodium 138 mmol/L (135-145) 04/08/23 Potassium 3.9 mmol/L (3.3-5.1) 04/08/23 Chloride 109 mmol/L (96-108) H 04/08/23 Carbon Dioxide 22 mmol/L (22-29) 04/08/23 Calcium 9.5 mg/dL (8.4-10.2) 04/08/23 AST 17 U/L (5-37) 04/08/23 ALT 27 U/L (0-40) 04/08/23 Total Protein 6.8 g/dL (6.5-8.0) 04/08/23 Albumin 4.2 g/dL (3.5-5.0) 04/08/23 [facility] Medical History Type 2 diabetes mellitus Surgical History No pertinent past surgical history Family History Brother Diabetes Paternal Grandmother Diabetes Father Diabetes Social History Housing: Apartment Patient Tobacco Use Status: Never used Tobacco e-Cigarette/Vaping Use: Never Used service: No Current occupational status: employed 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 Cognitive needs: No Hearing needs: No Vision needs: No Assessment & Plan Assessment & Plan (1) Type 2 diabetes mellitus without complications: Code(s): E11.9 - Type 2 diabetes mellitus without complications Qualifiers: Diabetes mellitus intermodal customer service insulin use: without intermodal customer service use Qualified Code(s): E11.9 - Type 2 diabetes mellitus without complications Plan: wt: 134 kg ( 06/2023) Est kcal needs as per MSJ: 2700 (40% carb, 30% protein/fat) Est fluid needs as per 30 ml/d:4000 Est prot per day as per 1 g/kg bw: 134 Recommend fiber intake : 8-10 g per day and gradually increase to 25-28 g per day for women and 35-38 g for men or as tolerated Recommend sodium intake per day : less than 2000 mg Educated patient on: ( R = reviewed V = verbalizes understanding N/R = needs review N/A = not applicable * Food sources of carbohydrate, adequate serving sizes and its role in various health conditions: R * Differences between complex carbohydrates a simple carbohydrates, role of fi sonya in diet, fiber sources of foods, fiber and satiety: R * Differences between types of fats and role in diet (mono on saturated fat fatty acids, saturated fatty acids, trans fats): NR * Food sources of sodium in salt and healthy modifications for heart health in kidney health: NR * Vitamins and minerals: R * Healthy plate method concept: R * Physical activity: Benefits a precaution: R * Hypoglycemia protocol (rule of 15): NR * Dietary prevention of Hyperglycemia: R (2) Morbid obesity with BMI of 40.0-44.9, adult: Code(s): E66.01 - Morbid (severe) obesity due to excess calories; Z68.41 - Body mass index [BMI] 40.0-44.9, adult Plan Work on reducing total carbs to less than 90 g at meals (3 per day ) and 0-20 g as snack no more than 2 a day Patient Instructions: Continue working on increasing physical activity, even if 10 additional minutes in the evening include high fiber foods (salads, green delgado, try 1 tbsp of fiber supplement in 8-10oz of water/low sugar beverage before dinner ) work on weight loss- goal 4 lbs weight loss by next follow up in 3 months Coding Level of Care Code Nutr Indiv Subseq (71483) Diagnoses Type 2 diabetes mellitus without complication, without long-term current use of insulin E11.9 Diabetes mellitus senior living insulin use: without intermodal customer service use Morbid obesity with BMI of 40.0-44.9, adult E66.01; Z68.41 Time Spent (min) 30
== END 2023-08-18 09:59 | disposition home or self-care (01) ==
PROVIDERS: PCP Nurse Practitioner Family; Visit Provider Dietitian, Registered
DX: E11.9 Type 2 diabetes mellitus without complications (principal); E66.01 Morbid (severe) obesity due to excess calories; Z68.41 Body mass index [BMI] 40.0-44.9, adult

== ENCOUNTER → 2023-08-18 09:30 | Outpatient (BNVA) | payer OTHER, SELFPAY | PROVIDERS: PCP Nurse Practitioner Family; Visit Provider Dietitian, Registered | DX: E11.9 Type 2 diabetes mellitus without complications (principal); Z71.3 Dietary counseling and surveillance | CPT/HCPCS: 97803 ==

== ENCOUNTER 2023-09-22 09:20 | Outpatient (REF) | payer OTHER, SELFPAY ==
[2023-09-22 11:55] LABS: Estimated Average Glucose 148 mg/dL; Hemoglobin A1c % 6.8 % (<6.0)
[2023-09-22 12:30] LABS: Cholesterol 155 mg/dL (<200); HDL Cholesterol 42 mg/dL (>40); LDL Cholesterol Calculated 88 mg/dL (<100); Triglycerides 129 mg/dL (<150)
== END 2023-09-22 09:21 | disposition home or self-care (01) ==
LOC: HO.WFDLDS 09:20
PROVIDERS: Visit Provider Nurse Practitioner Family
DX: E11.9 Type 2 diabetes mellitus without complications (principal)
CPT/HCPCS: 36415; 80061; 83036

== ENCOUNTER 2023-09-28 09:48 | Outpatient (AMB) | payer OTHER, SELFPAY ==
--- NOTE | 2023-09-28 09:55 | MHC.PC.OV ---
Vital Signs 09/28/23 09:56 Height 5 ft 10 in Weight 297 lb 8 oz BMI 42.7 BP 130/70 Blood Pressure Location Rt brachial Position Sitting Respiration 13 Pulse 90 Pulse Source Pulse Oximeter Temp 97.4 F Temp Source Temporal Artery Scan Pulse Oximetry (%) 98 Oxygen Delivery Method Room Air Intake Visit Reasons: DM, HTN Intake Note: Patient states that trulicity was canceled and put back into stock and needs to be resent and also needs refill on metformin. Psychological Tests Sales Agent Required: No Accompanied by: Self / Same As Patient Allergies sulfamethoxazole [From Bactrim] Adverse Reaction (Mild, Verified 09/28/23 10:02) Palpitations trimethoprim [From Bactrim] Adverse Reaction (Mild, Verified 09/28/23 10:02) Palpitations Tobacco use date assessed: 04/13/23 Dental Screening Dental Screen Date: 09/28/23 Did you have a dental visit in the last 12 months?: No Did you have a dental problem in the last 6 months where you did not have access to dental care?: No Was dental information given to patient?: Yes HPI HPI Comments History of Present Illness Details 42-year-old male presents for hypertension and diabetes follow-up His current A1c on 09/21/2022 his 6.8%. His last A1c was 6.7%. Recent LDL is 88 He admits to taking his medications as prescribed without adverse reactions He offers no complaints and denies acute symptoms at this time He admits to making healthy lifestyle choices, including limiting carbs and walking He spoke with the nurse navigator. He is currently followed by [facility] network solutions architect/dietitian. He is currently followed by [facility] network solutions architect/dietitian He has not called ophthalmology to schedule his diabetic retinal exam. 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 Fran Pastrana, Ana Urbina, Abe Gaitan and colleagues, with an educational deann from [employer]. Review of Systems Const Details: Const Denies chills, Denies fatigue, Denies fever(s), Denies headache(s) and Denies weakness ENT Denies dizziness and Denies headache(s) Card Denies chest pain, Denies lightheadedness, Denies dyspnea and Denies other (Palpitations) Resp Denies cough, Denies dyspnea, Denies wheezing and Denies other ( shortness of breath) GI Denies abdominal pain, Denies melena, Denies hematochezia, Denies change in bowel habits, Denies dyspepsia and Denies nausea Denies hematuria and Denies dysuria Musc Denies abnormal gait, Denies myalgias, Denies arthralgias, Denies numbness and Denies tingling Skin/Breast Denies rash, Denies unusual bruising and Denies wounds Neuro Denies abnormal gait, Denies dizziness, Denies headache(s), Denies memory loss, Denies numbness, Denies Sensory deficit (Neuro), Denies tingling and Denies weakness Psych Denies anxiety, Denies depression, Denies memory loss Endo Denies cold intolerance, Denies fatigue, Denies heat intolerance, Denies polydipsia and Denies polyuria Aller/Immun Denies wheezing Physical exam (Primary Care) Vital Signs: Last Vital Signs Temp 97.4 F 09/28/23 09:56 Pulse 90 09/28/23 09:56 Resp 13 09/28/23 09:56 BP 130/70 09/28/23 09:56 Pulse Ox 98 09/28/23 09:56 Oxygen Delivery Method Room Air 09/28/23 09:56 BMI result Body Mass Index 42.7 Tobacco/Smoking Status: Tobacco use Status Tobacco use date assessed 04/13/23 06/23/23 10:14 Patient Tobacco Use Status Never used Tobacco 06/23/23 10:14 e-Cigarette/Vaping Use Never Used 06/23/23 10:14 Thrive Assessment: Date of Thrive Assessment Date Thrive assessed 05/11/23 06/23/23 10:14 Const Other: General: no acute distress and well developed Nutritional Appearance: well nourished Orientation/consciousness: patient oriented x3 HENMT Head: Yes normocephalic and Yes atraumatic Eyes General: appearance normal, both eyes and all related structures Pupils: Equal, round and reactive pupils present EOM: EOMs intact bilaterally Resp Effort & Inspection: normal respiratory effort Auscultation: clear to auscultation bilaterally Cardio Rate: regular rate Rhythm: regular rhythm Heart sounds: S1 normal heart sound present, S2 normal heart sound present, no gallops, no murmurs and no rubs GI Palpation (GI): No Abdominal aortic bruit present, Soft to palpation, nontender, No hepatosplenomegaly present and No Rebound tenderness present Auscultation: normal bowel sounds General: Yes no CVA tenderness Back/Spine/Pelvis Back: no CVA tenderness Cervical Spine: cervical ROM normal and No Cervical spine tenderness Thoracic/Lumbar Spine: thoraco-lumbar ROM normal, No pain with thoraco-lumbar ROM, No thoracic spinal tenderness and No lumbar spinal tenderness Extrem General: Yes normal to inspection, No edema and No calf tenderness Skin General: warm and dry. Normal skin color. Normal skin turgor Neuro General: patient oriented x3, gait normal and no focal neuro deficit Cranial nerves: Yes Equal, round and reactive pupils present Cognition (Neuro): normal cognition Gait exam (Neuro): Normal gait present Sensory Exam: No Sensory deficit (Neuro) Psych Appearance: grossly normal Affect: normal affect Attitude: cooperative Thought process: Normal thought process present Assessment and Plan Assessment & Plan (1) Hypertension: Code(s): I10 - Essential (primary) hypertension Qualifiers: Hypertension type: primary hypertension Qualified Code(s): I10 - Essential (primary) hypertension Plan: BP is 130/70, slightly above goal of less than 130/80 Continue to take Lisinopril 20mg daily Low sodium diet encouraged Follow up in 3 months or returned sooner with symptoms or concerns Verbalized understanding and agreed with treatment plan (2) Type 2 diabetes mellitus without complications: Code(s): E11.9 - Type 2 diabetes mellitus without complications Qualifiers: Diabetes mellitus intermediate insulin use: without intermediate use Qualified Code(s): E11.9 - Type 2 diabetes mellitus without complications Plan: His current A1c on 09/21/2022 his 6.8%, above goal of 7.0%. His last A1c was 6.7%. Recent LDL is 88, slightly above goal of less than 70 Will increase Trulicity to 1.5 mg from 0.75 mg weekly. Advised to take as prescribed. This may also help with weight management Continue to take metformin 500 mg twice daily ADA diet and routine exercise encouraged Advised to limit foods high in saturated fat and avoid foods high in trans fat Encouraged to schedule an eye exam with ophthalmology Follow-up in 3 months or return sooner with symptoms or concerns Verbalized understanding and agreed with treatment plan Medications: New dulaglutide (Trulicity) 1.5 mg (0.5 mL) subcut QWEEK 2 mL 3RF Refilled metformin 500 mg PO BID 30 days 60 tabs 3RF Discontinued dulaglutide (Trulicity) Discontinued Reason: Doctor's Order 0.75 mg (0.5 mL) subcut QWEEK 30 days 2.5 mL 3RF Coding Level of Care Code Est Pt Level 4 (83904) Diagnoses Primary hypertension I10 Hypertension type: primary hypertension Type 2 diabetes mellitus without complication, without long-term current use of insulin E11.9 Diabetes mellitus intermediate insulin use: without intermediate use
[2023-09-28 09:56] VITALS: BP 130/70; PULSE 90; RESP 13; TEMP 36.3; O2SAT 98; BMI 42.7
== END 2023-09-28 10:19 | disposition home or self-care (01) ==
PROVIDERS: PCP Nurse Practitioner Family; Visit Provider Nurse Practitioner Family
DX: I10 Essential (primary) hypertension (principal); E11.9 Type 2 diabetes mellitus without complications
CPT/HCPCS: 99214

== ENCOUNTER 2023-11-16 09:51 | Outpatient (AMB) | payer OTHER, SELFPAY ==
--- NOTE | 2023-11-16 09:56 | A.OFFVIS_ITS ---
VS Expanded 11/16/23 09:57 Height 5 ft 10 in Weight 302 lb 7.587 oz BMI 43.4 Intake Visit Reasons: T2DM/CONFIRMED Allergies sulfamethoxazole [From Bactrim] Adverse Reaction (Mild, Verified 09/28/23 10:02) Palpitations trimethoprim [From Bactrim] Adverse Reaction (Mild, Verified 09/28/23 10:02) Palpitations Nutrition Presentation Details: Pt presents for MNT f/u for T2DM Pt acknowledges to increasing portion sizes of foods Reports following healthy plate method at least once a day however increasing food portions and choosing high fat foods throughout the day. BS Monitoring Most Recent Diabetes Results: 2 Microalb/Creat Ratio 19.6 ug/mg cr (<30) 04/08/23 Cholesterol 155 mg/dL (<200) 09/22/23 HDL Cholesterol 42 mg/dL (>40) 09/22/23 Triglycerides 129 mg/dL (<150) 09/22/23 Creatinine 0.90 mg/dL (0.5-1.4) 04/08/23 Blood Urea Nitrogen 16 mg/dL (9-16) 04/08/23 Sodium 138 mmol/L (135-145) 04/08/23 Potassium 3.9 mmol/L (3.3-5.1) 04/08/23 Chloride 109 mmol/L (96-108) H 04/08/23 Carbon Dioxide 22 mmol/L (22-29) 04/08/23 Calcium 9.5 mg/dL (8.4-10.2) 04/08/23 AST 17 U/L (5-37) 04/08/23 ALT 27 U/L (0-40) 04/08/23 Total Protein 6.8 g/dL (6.5-8.0) 04/08/23 Albumin 4.2 g/dL (3.5-5.0) 04/08/23 [facility] Medical History Type 2 diabetes mellitus Surgical History No pertinent past surgical history Family History Brother Diabetes Paternal Grandmother Diabetes Father Diabetes Social History Housing: Apartment Patient Tobacco Use Status: Never used Tobacco e-Cigarette/Vaping Use: Never Used service: No Current occupational status: employed 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 [id number] Cognitive needs: No Hearing needs: No Vision needs: No Assessment & Plan Assessment & Plan (1) Type 2 diabetes mellitus without complications: Code(s): E11.9 - Type 2 diabetes mellitus without complications Category: Medical Qualifiers: Diabetes mellitus buttermaker insulin use: without snf use Qualified Code(s): E11.9 - Type 2 diabetes mellitus without complications Plan: wt: 134 kg ( 06/2023), 137 (11/2023) Est kcal needs as per MSJ: 2700 (40% carb, 30% protein/fat) Est fluid needs as per 30 ml/d:4000 Est prot per day as per 1 g/kg bw: 134 Recommend fiber intake : 8-10 g per day and gradually increase to 25-28 g per day for women and 35-38 g for men or as tolerated Recommend sodium intake per day : less than 2000 mg Educated patient on: ( R = reviewed V = verbalizes understanding N/R = needs review N/A = not applicable * Food sources of carbohydrate, adequate serving sizes and its role in various health conditions: R * Differences between complex carbohydrates a simple carbohydrates, role of fiber in diet, fiber sources of foods, fiber and satiety: R * Differences between types of fats and role in diet (mono on saturated fat fatty acids, saturated fatty acids, trans fats): NR * Food sources of sodium in salt and healthy modifications for heart health in kidney health: NR * Vitamins and minerals: R * Healthy plate method concept: R * Physical activity: Benefits a precaution: R * Hypoglycemia protocol (rule of 15): NR * Dietary prevention of Hyperglycemia: R and relationship of weight gain with increased bg level (2) Morbid obesity with BMI of 40.0-44.9, adult: Code(s): E66.01 - Morbid (severe) obesity due to excess calories; Z68.41 - Body mass index [BMI] 40.0-44.9, adult Category: Medical Plan Work on reducing total carbs to less than 90 g at meals (3 per day ) and 0-20 g as snack no more than 2 a day Patient Instructions: Restart monitoring blood sugar in the fasting state and pre dinner (goal is less than 130 mg/d pre meals ) Reduce on chips/pretzels/crackers and have carrots/nuts unsalted instead , drink water /herbs infused water Continue Following healthy plate method at dinner and start healthy plate method at lunch Drink water or infused ray Coding Level of Care Code Nutr Indiv Subseq (40875) Diagnoses Type 2 diabetes mellitus without complication, without long-term current use of insulin E11.9 Diabetes mellitus snf insulin use: without snf use Morbid obesity with BMI of 40.0-44.9, adult E66.01; Z68.41 Time Spent (min) 30
[2023-11-16 09:57] VITALS: BMI 43.4
== END 2023-11-16 10:29 | disposition home or self-care (01) ==
PROVIDERS: PCP Nurse Practitioner Family; Visit Provider Dietitian, Registered
DX: E11.9 Type 2 diabetes mellitus without complications (principal); E66.01 Morbid (severe) obesity due to excess calories; Z68.41 Body mass index [BMI] 40.0-44.9, adult

== ENCOUNTER → 2023-11-16 09:51 | Outpatient (BNVA) | payer OTHER, SELFPAY | PROVIDERS: PCP Nurse Practitioner Family; Visit Provider Dietitian, Registered | DX: E11.9 Type 2 diabetes mellitus without complications (principal); E66.01 Morbid (severe) obesity due to excess calories; Z68.41 Body mass index [BMI] 40.0-44.9, adult; Z71.3 Dietary counseling and surveillance | CPT/HCPCS: 97803 ==

== ENCOUNTER 2024-01-05 10:53 | Outpatient (AMB) | payer OTHER, SELFPAY ==
--- NOTE | 2024-01-05 11:11 | A.OFFPC_ITS ---
Vital Signs 01/05/24 11:17 01/05/24 11:23 Weight 297 lb 6 oz BP 134/90 H 128/88 Blood Pressure Location Rt brachial Lt brachial Position Sitting Sitting Respiration 12 Pulse 71 Pulse Source Pulse Oximeter Temp 98.1 F Temp Source Temporal Artery Scan Pulse Oximetry (%) 96 Oxygen Delivery Method Room Air Intake Visit Reasons: DM HTN Intake Note: patient here for follow up. Card Fixer Required: No Allergies sulfamethoxazole [From Bactrim] Adverse Reaction (Mild, Verified 01/05/24 11:31) Palpitations trimethoprim [From Bactrim] Adverse Reaction (Mild, Verified 01/05/24 11:31) Palpitations Medication List - Last Reconciled 01/05/24 by Lanny Bro CNP blood sugar diagnostic (FreeStyle Lite Strips) As directed TID blood-glucose meter (FreeStyle Lite Meter kit) As directed dulaglutide (Trulicity) 1.5 mg (0.5 mL) subcut QWEEK lancets (FreeStyle Lancets) As directed lisinopril 20 mg PO DAILY 30 days metformin 500 mg PO BID 30 days Tobacco use date assessed: 04/13/23 Dental Screening Dental Screen Date: 09/28/23 HPI HPI Comments History of Present Illness Details 43-year-old male presents for hypertensi on and diabetes follow-up He admits to taking his medications as prescribed without adverse reactions. He states that he ran out [facility] ([facility] 3 weeks ago and was told by [facility] there is a shortage of the medication He has been been eating healthier. He denies routine exercise. 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 Fran Pastrana, Ana Urbina, Abe Gaitan and colleagues, with an educational deann from [employer]. Review of Systems Const Details: Const Denies chills, Denies fatigue, Denies fever(s), Denies headache(s) and Denies weakness ENT Denies dizziness and Denies headache(s) Card Denies chest pain, Denies lightheadedness, Denies dyspnea and Denies other (Palpitations) Resp Denies cough, Denies dyspnea, Denies wheezing and Denies other ( shortness of breath) GI Denies abdominal pain, Denies melena, Denies hematochezia, Denies change in bowel habits, Denies dyspepsia and Denies nausea Denies hematuria and Denies dysuria Musc Denies abnormal gait, Denies myalgias, Denies arthralgias, Denies numbness and Denies tingling Skin/Breast Denies rash, Denies unusual bruising and Denies wounds Neuro Denies abnormal gait, Denies dizziness, Denies headache(s), Denies memory loss, Denies numbness, Denies Sensory deficit (Neuro), Denies tingling and Denies weakness Psych Denies anxiety, Denies depression, Denies memory loss Endo Denies cold intolerance, Denies fatigue, Denies heat intolerance, Denies polydipsia and Denies polyuria Aller/Immun Denies wheezing Physical exam (Primary Care) Vital Signs: Last Vital Signs Temp 98.1 F 01/05/24 11:17 Pulse 71 01/05/24 11:17 Resp 12 01/05/24 11:17 BP 128/88 01/05/24 11:23 Pulse Ox 96 01/05/24 11:17 Oxygen Delivery Method Room Air 01/05/24 11:17 Tobacco/Smoking Status: Tobacco use Status Tobacco use date assessed 04/13/23 01/05/24 11:13 Patient Tobacco Use Status Never used Tobacco 01/05/24 11:13 e-Cigarette/Vaping Use Never Used 07/02/24 11:13 Thrive Assessment: Date of Thrive Assessment Date Thrive assessed 05/11/23 01/05/24 11:13 Const Other: General: no acute distress and well developed Nutritional Appearance: well nourished Orientation/consciousness: patient oriented x3 [facility] Head: Yes normocephalic and Yes atraumatic Eyes General: appearance normal, both eyes and all related structures Pupils: Equal, round and reactive pupils present EOM: EOMs intact bilaterally Resp Effort & Inspection: normal respiratory effort Auscultation: clear to auscultation bilaterally Cardio Rate: regular rate Rhythm: regular rhythm Heart sounds: S1 normal heart sound present, S2 normal heart sound present, no gallops, no murmurs and no rubs GI Palpation (GI): No Abdominal aortic bruit present, Soft to palpation, nontender, No hepatosplenomegaly present and No Rebound tenderness present Auscultation: normal bowel sounds General: Yes no CVA tenderness Back/Spine/Pelvis Back: no CVA tenderness Cervical Spine: cervical ROM normal and No Cervical spine tenderness Thoracic/Lumbar Spine: thoraco-lumbar ROM normal, No pain with thoraco-lumbar ROM, No thoracic spinal tenderness and No lumbar spinal tenderness Extrem General: Yes normal to inspection, No edema and No calf tenderness Skin General: warm and dry. Normal skin color. Normal skin turgor Lesions: no lesions Rashes: no rashes Trauma: no lacerations or abrasions Wounds: no wounds Nails: normal Neuro General: patient oriented x3, gait normal and no focal neuro deficit Cranial nerves: Yes Equal, round and reactive pupils present Cognition (Neuro): normal cognition Gait exam (Neuro): Normal gait present Sensory Exam: No Sensory deficit (Neuro) Psych Appearance: grossly normal Affect: normal affect Attitude: cooperative Thought process: Normal thought process present Results AMB Hemoglobin A1c AMB Hemoglobin A1c 7.5 % Last Edit by Nichelle Guadalupe CMA on 01/05/24 14:00 Results Reviewed Results Reviewed: Laboratory Last Values Hgb A1c (Clinic) 7.5 % (4.0-6.0) H 01/05/24 12:02 Assessment and Plan Assessment & Plan (1) Hypertension: Code(s): I10 - Essential (primary) hypertension Qualifiers: Hypertension type: primary hypertension Qualified Code(s): I10 - Essential (primary) hypertension Plan: Resting A1c is 128/88, slightly above goal of less than 130/80 Continue current treatment regimen Low-sodium diet encouraged Follow-up in 3 months or return sooner with symptoms or concerns Verbalized understanding and agreed with the treatment plan (2) Type 2 diabetes mellitus without complications: Code(s): E11.9 - Type 2 diabetes mellitus without complications Qualifiers: Diabetes mellitus merchandising coordinator insulin use: without prison use Qualified Code(s): E11.9 - Type 2 diabetes mellitus without complications Plan: A1c today is 7.5%, above goal of less than 7.0%. Previous A1c was 6.8% He has been out of Trulicity for the past 3 weeks due to reported shortage by the pharmacy. The MA called the pharmacy and confirmed that there has been significant shortage of Trulicity. However, they will put in an order so the patient receive the medications soon Will increase metformin to 850 mg twice daily Continue to take Trulicity as prescribed when refilled by the pharmacy ADA diet and routine exercise encouraged. Continue to work with dietitian Follow-up in 3 months Verbalized understanding and agreed with treatment plan Orders: Orders AMB Hemoglobin A1c Today E11.9 - Type 2 diabetes mellitus without complications Medications: New metformin 850 mg PO BIDWMEAL 60 tabs 3RF 30 days Discontinued metformin Discontinued Reason: Doctor's Order 500 mg PO BID 30 days 60 tabs 3RF Coding Level of Care Code Est Pt Level 4 (00389) Complex EM visit Add On G2211 Diagnoses Primary hypertension I10 Hypertension type: primary hypertension Type 2 diabetes mellitus without complication, without long-term current use of insulin E11.9 Diabetes mellitus prison insulin use: without prison use
[2024-01-05 11:17] VITALS: BP 134/90; PULSE 71; RESP 12; TEMP 36.7; O2SAT 96
[2024-01-05 11:23] VITALS: BP 128/88
== END 2024-01-05 12:13 | disposition home or self-care (01) ==
PROVIDERS: PCP Nurse Practitioner Family; Visit Provider Nurse Practitioner Family
DX: I10 Essential (primary) hypertension (principal); E11.9 Type 2 diabetes mellitus without complications
CPT/HCPCS: 83036; 99214; G2211

== ENCOUNTER 2024-05-12 15:07 | Outpatient (AMB) | payer OTHER, SELFPAY ==
--- NOTE | 2024-05-12 15:13 | MHC.PC.OV ---
Vital Signs 05/12/24 15:20 Height 5 ft 10 in Weight 295 lb 4 oz BMI 42.4 BP 132/84 Blood Pressure Location Lt brachial Position Sitting Respiration 16 Pulse 78 Pulse Source Pulse Oximeter Temp 98.1 F Temp Source Oral Pulse Oximetry (%) 96 Oxygen Delivery Method Room Air Intake Visit Reasons: 3 mos HTN, DM (Check ins) Intake Note: patient here for follow up on HTN and DM. Ranch Manager Required: No Allergies sulfamethoxazole [From Bactrim] Adverse Reaction (Mild, Verified 05/12/24 15:26) Palpitations trimethoprim [From Bactrim] Adverse Reaction (Mild, Verified 05/12/24 15:26) Palpitations Medication List - Last Reconciled 05/12/24 by Lanny Bro CNP blood sugar diagnostic (FreeStyle Lite Strips) As directed TID blood-glucose meter (FreeStyle Lite Meter kit) As directed dulaglutide (BookingNestulicity) 1.5 mg (0.5 mL) subcut QWEEK lancets (FreeStyle Lancets) As directed lisinopril 20 mg PO DAILY 30 days metformin 850 mg PO BIDWMEAL 30 days Tobacco use date assessed: 05/12/24 Dental Screening Dental Screen Date: 05/12/24 Did you have a dental visit in the last 12 months?: No Did you have a dental problem in the last 6 months where you did not have access to dental care?: No Was dental information given to patient?: Yes HPI HPI Comments History of Present Illness Details 43-year-old male presents for hypertension and diabetes follow-up He admits to taking his medications as prescribed without adverse reactions. He ran out of [employer] about 2-3 weeks ago He notes that he has been making healthy lifestyle changes. 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 1. Little interest or pleasure in doing things: not at all 2. Feeling down, depressed, or hopeless: several days 3. Trouble falling or staying asleep, or sleeping too much: not at all 4. Feeling tired or having little energy: not at all 5. Poor appetite or overeating: not at all 6. Feeling bad about yourself - or that you are a failure or have let yourself or your family down: not at all 7. Trouble concentrating on things, such as reading the newspaper or watching television: not at all 8. Moving or speaking so slowly that other people could have noticed. Or the opposite - being so fidgety or restless that you have been moving around a lot more than usual: not at all 9. Thoughts that you would be better off or of hurting yourself in some way: not at all Total score: 1 Depression Screening Interpretation: Negative Depression Screening Done: Yes 60478 - PHQ-9 Billing: Yes Source: Developed by Drs. Fran Pastrana, Ana Urbina, Abe Gaitan and colleagues, with an educational deann from [employer]. Thrive Questionnaire Date Thrive assessed: 05/12/24 I am a: Patient What is your living situation today?: I have a steady place to live Within the past 12 months, did the food you bought not last and you didn't have the money to get more?: Never true Within the past 12 months, did you worry whether your food would run out before you got money to buy more?: Never true Do you have trouble paying for medicines?: No Do you have trouble getting transportation to medical appointments?: No Do you have trouble paying your heating and electricity bill?: No Do you have trouble taking care of your child, family member or friend?: No Do you have trouble with day-to-day activities such as bathing, preparing meals, shopping, managing finances, etc.?: No Are you currently unemployed and looking for a job?: No Are you interested in more education?: No Please select the resources that you would like help with: None Currently or been in a relationship where the following occur: No concerns reported THRIVE Score: 0 AUDIT C Alcohol Use Questionnaire (AUDIT-C) 1. How often do you have a drink containing alcohol?: Monthly or less 2. How many drinks containing alcohol do you have on a typical day when you are drinking?: 1 or 2 3. How often do you have six or more drinks on one occasion?: Never Total Score: 1 Score Reviewed/Action Taken: Yes URIEL-7 AMB Questionnaire URIEL-7 Date URIEL - 7 assessed: 05/12/24 Feeling nervous, anxious, or on edge: 0 = Not at all Not being able to stop or control worryin = Not at all Worrying too much about different things: 0 = Not at all Trouble relaxin = Not at all Being so restless that it is hard to sit still: 0 = Not at all Becoming easily annoyed or irritable: 1 = Several days Feeling afraid as if something awful might happen: 0 = Not at all Total URIEL-7 score (0-4 normal; 5-9 mild; 10-14 moderate; 15-21 severe): 1 Source: Developed by Drs. Fran Pastrana, Ana Urbina, Abe Gaitan and colleagues, with an educational deann from [employer]. URIEL-7 Assessment Billing URIEL-7 Assessment Tool: URIEL-7 Assessment 11126 Review of Systems Const Details: Const Denies chills, Denies fatigue, Denies fever(s), Denies headache(s) and Denies weakness ENT Denies dizziness and Denies headache(s) Card Denies chest pain, Denies lightheadedness, Denies dyspnea and Denies other (Palpitations) Resp Denies cough, Denies dyspnea, Denies wheezing and Denies other ( shortness of breath) GI Denies abdominal pain, Denies melena, Denies hematochezia, Denies change in bowel habits, Denies dyspepsia and Denies nausea Denies hematuria and Denies dysuria Musc Denies abnormal gait, Denies myalgias, Denies arthralgias, Denies numbness and Denies tingling Skin/Breast Denies rash, Denies unusual bruising and Denies wounds Neuro Denies abnormal gait, Denies dizziness, Denies headache(s), Denies memory loss, Denies numbness, Denies Sensory deficit (Neuro), Denies tingling and Denies weakness Psych Denies anxiety, Denies depression, Denies memory loss Endo Denies cold intolerance, Denies fatigue, Denies heat intolerance, Denies polydipsia and Denies polyuria Aller/Immun Denies wheezing Physical exam (Primary Care) Vital Signs: Last Vital Signs Temp 98.1 F 05/12/24 15:20 Pulse 78 05/12/24 15:20 Resp 16 05/12/24 15:20 BP 132/84 05/12/24 15:20 Pulse Ox 96 05/12/24 15:20 Oxygen Delivery Method Room Air 05/12/24 15:20 BMI result Body Mass Index 42.4 Tobacco/Smoking Status: Tobacco use Status Tobacco use date assessed 05/12/24 05/12/24 15:25 Patient Tobacco Use Status Never used Tobacco 05/12/24 15:13 e-Cigarette/Vaping Use Never Used 05/12/24 15:13 PHQ-9: PHQ-9 Score PHQ-9: Total score 1 05/12/24 15:25 Depression Screening Interpretation: Negative Thrive Assessment: Date of Thrive Assessment Date Thrive assessed 05/12/24 05/12/24 15:25 Currently or been in a relationship where the following occur: No concerns reported Const Other: General: no acute distress and well developed Nutritional Appearance: well nourished Orientation/consciousness: patient oriented x3 [facility] Head: Yes normocephalic and Yes atraumatic Eyes General: appearance normal, both eyes and all related structures Pupils: Equal, round and reactive pupils present EOM: EOMs intact bilaterally Resp Effort & Inspection: normal respiratory effort Auscultation: clear to auscultation bilaterally Cardio Rate: regular rate Rhythm: regular rhythm Heart sounds: S1 normal heart sound present, S2 normal heart sound present, no gallops, no murmurs and no rubs GI Palpation (GI): No Abdominal aortic bruit present, Soft to palpation, nontender, No hepatosplenomegaly present and No Rebound tenderness present Auscultation: normal bowel sounds General: Yes no CVA tenderness Back/Spine/Pelvis Back: no CVA tenderness Extrem General: Yes normal to inspection, No edema and No calf tenderness Skin General: warm and dry. Normal skin color. Normal skin turgor Neuro General: patient oriented x3, gait normal and no focal neuro deficit Cranial nerves: Yes Equal, round and reactive pupils present Cognition (Neuro): normal cognition Gait exam (Neuro): Normal gait present Sensory Exam: No Sensory deficit (Neuro) Psych Appearance: grossly normal Affect: normal affect Attitude: cooperative Thought process: Normal thought process present Coding Level of Care Code Est Pt Level 3 (24485) Diagnoses Type 2 diabetes mellitus without complication, without long-term current use of insulin E11.9 Diabetes mellitus shelter insulin use: without computer terminal operator use Primary hypertension I10 Hypertension type: primary hypertension Laboratory tests ordered as part of a complete physical exam (CPE) Z00.00 Additional Codes URIEL-7 Assessment Billing - URIEL-7 Assessment Tool: URIEL-7 Assessment 84796 ([id number]) PHQ-9 - 95146 - PHQ-9 Billing: Yes ([id number]) Assessment & Plan Assessment & Plan (1) Type 2 diabetes mellitus without complications: Code(s): E11.9 - Type 2 diabetes mellitus without complications Category: Medical Qualifiers: Diabetes mellitus shelter insulin use: without shelter use Qualified Code(s): E11.9 - Type 2 diabetes mellitus without complications Plan: A1c today 6.7%, within goal of less than 7.0%. Previous A1c was 7.5% Continue current treatment regimen Trulicity refill sent to the pharmacy ADA diet and routine exercise encouraged Will recheck A1c in 3 months Advised to get lab work done before his next visit Follow-up for an extended physical exam in a month or sooner with symptoms or concerns Verbalized understanding and agreed with the treatment plan (2) Hypertension: Code(s): I10 - Essential (primary) hypertension Category: Medical Qualifiers: Hypertension type: primary hypertension Qualified Code(s): I10 - Essential (primary) hypertension Plan: Blood pressure is 132/84, slightly above goal of less than 130/80 Continue current treatment regimen Low-sodium diet encouraged Will continue to monitor Verbalized understanding and agreed with the treatment plan (3) Laboratory tests ordered as part of a complete physical exam (CPE): Code(s): Z00.00 - Encounter for general adult medical examination without abnormal findings Category: Medical Plan: Fasting labs ordered as part of a complete physical exam. Advised to fast for at least 10 hours before getting labs drawn. May drink water Verbalized understanding and agreed with treatment plan. Orders: Orders AMB Hemoglobin A1c Today Z13.9 - Encounter for screening, unspecified Complete Blood Count Auto Diff Today Z00.00 - Encounter for general adult medical examination without abnormal findings Comprehensive [place]. Panel Fast Today Z00.00 - Encounter for general adult medical examination without abnormal findings Microalbumin, Random (w Creat) Today Z00.00 - Encounter for general adult medical examination without abnormal findings TSH reflex Free T4 Today Z00.00 - Encounter for general adult medical examination without abnormal findings UA CC w/rflx Micro + Cult Today Z00.00 - Encounter for general adult medical examination without abnormal findings PSA, Ultra Sensitive Today Z00.00 - Encounter for general adult medical examination without abnormal findings Lipid Panel Today Z00.00 - Encounter for general adult medical examination without abnormal findings Medications: Refilled dulaglutide (Trulicity) 1.5 mg (0.5 mL) subcut QWEEK 2 mL 3RF
[2024-05-12 15:20] VITALS: BP 132/84; PULSE 78; RESP 16; TEMP 36.7; O2SAT 96; BMI 42.4
== END 2024-05-12 15:40 | disposition home or self-care (01) ==
LOC: HO.HMCFM 15:07
PROVIDERS: PCP Nurse Practitioner Family; Visit Provider Nurse Practitioner Family
DX: E11.9 Type 2 diabetes mellitus without complications (principal); I10 Essential (primary) hypertension; Z00.00 Encounter for general adult medical examination without abnormal findings; Z13.9 Encounter for screening, unspecified

== ENCOUNTER → 2024-05-12 15:07 | Outpatient (BNVA) | payer OTHER, SELFPAY | PROVIDERS: PCP Nurse Practitioner Family; Visit Provider Nurse Practitioner Family | DX: E11.9 Type 2 diabetes mellitus without complications (principal); I10 Essential (primary) hypertension | CPT/HCPCS: 83036; 96127 ==

== ENCOUNTER 2024-08-10 14:52 | Outpatient (REF) | payer OTHER, SELFPAY ==
[2024-08-10 18:21] LABS: MANUAL DIFF FLAG NO
[2024-08-10 18:37] LABS: Basophils Percent Auto 0.3 % (0-2); Eosinophils Absolute Auto 0.1 X10*3/uL (0.0-0.4); Eosinophils Percent Auto 1.5 % (0-4); Hematocrit 44.1 % (42.0-52.0); Hemoglobin 14.5 g/dl (14.0-18.0); Imm Gran Abs Auto 0.01 X10*3/uL (0.00-0.03); Imm Gran Pct Auto 0.1 % (0.0-0.4); Lymphocytes Absolute Auto 2.2 X10*3/uL (1.2-4.9); Lymphocytes Percent Auto 32.3 % (20-40); Mean Corpuscular HGB Conc 32.9 g/dl (31.0-36.0); Mean Corpuscular Hemoglobin 28.2 pg (27.0-33.0); Mean Corpuscular Volume 85.6 fL (80.0-98.0); Mean Platelet Volume 12.6 fL (9.4-12.4); Monocytes Absolute Auto 0.5 X10*3/uL (0.1-1.2); Monocytes Percent Auto 6.7 % (2-11); Neutrophils Absolute Auto 3.9 x10*3/uL (2.0-8.3); Neutrophils Percent Auto 59.1 % (45-73); Platelet Count 210 X10*3/uL (160-400); Red Blood Count 5.15 X10*6/uL (4.60-5.80); Red Cell Distribution Width 13.2 % (11.0-16.0); White Blood Count 6.7 X10*3/uL (4.8-10.8)
[2024-08-10 18:55] LABS: Alanine Aminotransferase 33 U/L (0-40); Albumin Level 4.2 g/dL (3.5-5.0); Alkaline Phosphatase 36 U/L (39-117); Anion Gap 8 (12-20); Aspartate Amino Transferase 22 U/L (5-37); Bilirubin Total 0.9 mg/dL (0.0-1.0); Blood Urea Nitrogen 9 mg/dL (9-16); Calcium 8.5 mg/dL (8.4-10.2); Carbon Dioxide 27 mmol/L (22-29); Chloride 109 mmol/L (96-108); Cholesterol 149 mg/dL (<200); Estimated Glomerular Filt Rate > 60; Glucose Fasting 92 mg/dL (60-99); HDL Cholesterol 40 mg/dL (>40); LDL Cholesterol Calculated 79 mg/dL (<100); Potassium 3.5 mmol/L (3.3-5.1); Sodium 140 mmol/L (135-145); Triglycerides 153 mg/dL (<150)
[2024-08-10 18:59] LABS: Creatinine Urine 35.49 mg/dL; Microalbumin Urine < 5.0 mg/L
[2024-08-10 19:01] LABS: Appearance Urine Clear; Color Urine Yellow; Glucose Urine UA Negative (Negative); Leukocyte Esterase Urine Negative (Negative); Nitrite Urine Negative (Negative); Specific Gravity - Urine <= 1.005 (1.005-1.025); Urine Blood Negative (Negative); Urine Ketones Negative (Negative); Urine Protein Negative (Neg-Trace)
[2024-08-10 19:10] LABS: TSH reflex Free T4 1.03 uIU/mL (0.32-4.0)
[2024-08-19 01:23] LABS: PSA, Ultra Sensitive 0.84 ng/mL
== END 2024-08-10 14:53 | disposition home or self-care (01) ==
LOC: HO.WFDLDS 14:52
PROVIDERS: Visit Provider Nurse Practitioner Family
DX: Z00.00 Encounter for general adult medical examination without abnormal findings (principal); Z13.220 Encounter for screening for lipoid disorders; Z12.5 Encounter for screening for malignant neoplasm of prostate; Z13.29 Encounter for screening for other suspected endocrine disorder; Z13.9 Encounter for screening, unspecified
CPT/HCPCS: 36415; 80053; 80061; 81003; 82570; 84153; 84443; 85025

== ENCOUNTER → 2024-08-12 12:24 | Outpatient (BNVA) | payer OTHER, SELFPAY | PROVIDERS: PCP Nurse Practitioner Family; Visit Provider Nurse Practitioner Family | DX: Z00.00 Encounter for general adult medical examination without abnormal findings (principal); Z23 Encounter for immunization; E11.9 Type 2 diabetes mellitus without complications; I10 Essential (primary) hypertension; E78.5 Hyperlipidemia, unspecified; E66.01 Morbid (severe) obesity due to excess calories; Z68.41 Body mass index [BMI] 40.0-44.9, adult; Z79.899 Other long term (current) drug therapy | CPT/HCPCS: 90471; 90472; 90656; 90715; 96127 ==

== ENCOUNTER 2024-09-02 12:52 | Outpatient (AMB) | payer OTHER, SELFPAY ==
--- NOTE | 2024-09-02 13:31 | A.OFFPC_ITS ---
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: No Allergies sulfamethoxazole [From Bactrim] Adverse Reaction (Mild, Verified 09/02/24 13:36) Palpitations trimethoprim [From Bactrim] Adverse Reaction (Mild, Verified 09/02/24 13:36) Palpitations Medication List - Last Reconciled 09/02/24 by Lanny Bro CNP blood sugar diagnostic (FreeStyle Lite Strips) As directed TID blood-glucose meter (FreeStyle Lite Meter kit) As directed dulaglutide (Trulicity) 1.5 mg (0.5 mL) subcut QWEEK lancets (FreeStyle Lancets) As directed lisinopril 30 mg PO DAILY 30 days metformin 850 mg PO BIDWMEAL 30 days Tobacco use date assessed: 09/02/24 Dental Screening Dental Screen Date: 09/02/24 Did you have a dental visit in the last 12 months?: No Did you have a dental problem in the last 6 months where you did not have access to dental care?: No Was dental information given to patient?: Yes HPI HPI Comments History of Present Illness Details 43-year-old male presents for hypertensi on follow-up. He admits to taking his medications as prescribed without adverse reactions. He notes he has been making healthy dietary choices, including low-sodium diet. He exercises routinely. He offers no complaints and denies acute symptoms at this time. 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 Cognitive needs: No Hearing needs: No Vision needs: No Questionnaire Thrive Questionnaire Date Thrive assessed: 08/12/24 I am a: Patient What is your living situation today?: I have a steady place to live Within the past 12 months, did the food you bought not last and you didn't have the money to get more?: Never true Within the past 12 months, did you worry whether your food would run out before you got money to buy more?: Never true Do you have trouble paying for medicines?: No Do you have trouble getting transportation to medical appointments?: No Do you have trouble paying your heating and electricity bill?: No Do you have trouble taking care of your child, family member or friend?: No Do you have trouble with day-to-day activities such as bathing, preparing meals, shopping, managing finances, etc.?: No Are you currently unemployed and looking for a job?: No Are you interested in more education?: Yes Please select the resources that you would like help with: None Currently or been in a relationship where the following occur: No concerns reported THRIVE Score: 0 URIEL-7 AMB Questionnaire URIEL-7 Date URIEL - 7 assessed: 08/12/24 Source: Developed by Drs. Fran Pastrana, Ana Urbina, Abe Gaitan and colleagues, with an educational deann from [employer]. Review of Systems Const Details: Const Denies chills, Denies fatigue, Denies fever(s), Denies headache(s) and Denies weakness ENT Denies dizziness and Denies headache(s) Card Denies chest pain, Denies lightheadedness, Denies dyspnea and Denies other (Palpitations) Resp Denies cough, Denies dyspnea, Denies wheezing and Denies other ( shortness of breath) GI Denies abdominal pain, Denies melena, Denies hematochezia, Denies change in bowel habits, Denies dyspepsia and Denies nausea Denies hematuria and Denies dysuria Musc Denies abnormal gait, Denies myalgias, Denies arthralgias, Denies numbness and Denies tingling Skin/Breast Denies rash, Denies unusual bruising and Denies wounds Neuro Denies abnormal gait, Denies dizziness, Denies headache(s), Denies memory loss, Denies numbness, Denies Sensory deficit (Neuro), Denies tingling and Denies weakness Psych Denies anxiety, Denies depression, Denies memory loss Endo Denies cold intolerance, Denies fatigue, Denies heat intolerance, Denies polydipsia and Denies polyuria Aller/Immun Denies wheezing Physical exam (Primary Care) Vital Signs: Last Vital Signs Temp 97.6 F 09/02/24 13:35 Pulse 87 09/02/24 13:35 Resp 16 09/02/24 13:35 BP 126/80 09/02/24 13:47 Pulse Ox 96 09/02/24 13:35 Oxygen Delivery Method Room Air 09/02/24 13:35 BMI result Body Mass Index 42.0 Tobacco/Smoking Status: Tobacco use Status Tobacco use date assessed 09/02/24 09/02/24 13:37 Patient Tobacco Use Status Never used Tobacco 09/02/24 13:32 e-Cigarette/Vaping Use Never Used 09/02/24 13:32 Thrive Assessment: Date of Thrive Assessment Date Thrive assessed 08/12/24 09/02/24 13:32 Currently or been in a relationship where the following occur: No concerns reported Const Other: General: no acute distress and well developed Nutritional Appearance: well nourished Orientation/consciousness: patient oriented x3 HENMT Head: Yes normocephalic and Yes atraumatic Eyes General: appearance normal, both eyes and all related structures Pupils: Equal, round and reactive pupils present EOM: EOMs intact bilaterally Resp Effort & Inspection: normal respiratory effort Auscultation: clear to auscultation bilaterally Cardio Rate: regular rate Rhythm: regular rhythm Heart sounds: S1 normal heart sound present, S2 normal heart sound present, no g allops, no murmurs and no rubs GI Palpation (GI): No Abdominal aortic bruit present, Soft to palpation, nontender, No hepatosplenomegaly present and No Rebound tenderness present Auscultation: normal bowel sounds General: Yes no CVA tenderness Back/Spine/Pelvis Back: no CVA tenderness Cervical Spine: cervical ROM normal and No Cervical spine tenderness Thoracic/Lumbar Spine: thoraco-lumbar ROM normal, No pain with thoraco-lumbar ROM, No thoracic spinal tenderness and No lumbar spinal tenderness Extrem General: Yes normal to inspection, No edema and No calf tenderness Skin General: warm and dry. Normal skin color. Normal skin turgor Neuro General: patient oriented x3, gait normal and no focal neuro deficit Cranial nerves: Yes Equal, round and reactive pupils present Cognition (Neuro): normal cognition Gait exam (Neuro): Normal gait present Sensory Exam: No Sensory deficit (Neuro) Psych Appearance: grossly normal Affect: normal affect Attitude: cooperative Thought process: Normal thought process present Results AMB Hemoglobin A1c AMB Hemoglobin A1c 7.0 % Last Edit by Rosi Oreilly on 09/02/24 13:44 Results Reviewed Results Reviewed: Laboratory Last Values Hgb A1c (Clinic) 7.0 % (4.0-6.0) H 09/02/24 13:41 Coding Level of Care Code Est Pt Level 3 (86781) Diagnoses Primary hypertension I10 Hypertension type: primary hypertension Type 2 diabetes mellitus without complication, without long-term current use of insulin E11.9 Diabetes mellitus care home insulin use: without care home use Assessment & Plan Assessment & Plan (1) Hypertension: Code(s): I10 - Essential (primary) hypertension Category: Medical Qualifiers: Hypertension type: primary hypertension Qualified Code(s): I10 - Essential (primary) hypertension Plan: Resting blood pressure is 126/80, slightly above goal of less than 130/80. Continue current treatment regimen. Advised to get fasting lipid panel blood work 2-3 days before next visit. Follow-up in 9 weeks for hypertension, diabetes, and dyslipidemia. Return sooner with symptoms or concerns. Verbalized understanding and agreed with treatment plan. (2) Type 2 diabetes mellitus without complications: Code(s): E11.9 - Type 2 diabetes mellitus without complications Category: Medical Qualifiers: Diabetes mellitus terminal make up operator insulin use: without terminal make up operator use Qualified Code(s): E11.9 - Type 2 diabetes mellitus without complications Plan: A1c on 08/12/2024 was 7.0% but was not recorded on the labs. A1c was not checked today but the 08/12/2024 result was inadvertently recorded in today's visit. His next A1c check his due in 9 weeks. Orders: Orders AMB Hemoglobin A1c Today Z13.9 - Encounter for screening, unspecified
[2024-09-02 13:35] VITALS: BP 131/82; PULSE 87; RESP 16; TEMP 36.4; O2SAT 96; BMI 42.0
[2024-09-02 13:47] VITALS: BP 126/80
== END 2024-09-02 13:53 | disposition home or self-care (01) ==
PROVIDERS: PCP Nurse Practitioner Family; Visit Provider Nurse Practitioner Family
DX: I10 Essential (primary) hypertension (principal); E11.9 Type 2 diabetes mellitus without complications; Z13.9 Encounter for screening, unspecified

== ENCOUNTER → 2024-09-02 12:52 | Outpatient (BNVA) | payer OTHER, SELFPAY | PROVIDERS: PCP Nurse Practitioner Family; Visit Provider Nurse Practitioner Family | DX: I10 Essential (primary) hypertension (principal); E11.9 Type 2 diabetes mellitus without complications | CPT/HCPCS: 83036 ==

== ENCOUNTER 2024-11-09 15:06 | Outpatient (REF) | payer OTHER, SELFPAY ==
[2024-11-09 18:33] LABS: Cholesterol 169 mg/dL (<200); HDL Cholesterol 44 mg/dL (>40); LDL Cholesterol Calculated 101 mg/dL (<100); Triglycerides 123 mg/dL (<150)
== END 2024-11-09 15:07 | disposition home or self-care (01) ==
LOC: HO.WFDLDS 15:06
PROVIDERS: Visit Provider Nurse Practitioner Family
DX: E78.5 Hyperlipidemia, unspecified (principal)
CPT/HCPCS: 36415; 80061

== ENCOUNTER 2024-11-11 11:36 | Outpatient (AMB) | payer OTHER, SELFPAY ==
--- NOTE | 2024-11-11 11:38 | A.OFFPC_ITS ---
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 Allergies sulfamethoxazole [From Bactrim] Adverse Reaction (Mild, Verified 11/11/24 12:09) Palpitations trimethoprim [From Bactrim] Adverse Reaction (Mild, Verified 11/11/24 12:09) Palpitations Medication List - Last Reconciled 11/11/24 by Lanny Bro CNP blood sugar diagnostic (FreeStyle Lite Strips) As directed TID blood-glucose meter (FreeStyle Lite Meter kit) As directed dulaglutide (Trulicity) 1.5 mg (0.5 mL) subcut QWEEK lancets (FreeStyle Lancets) As directed lisinopril 30 mg PO DAILY 30 days metformin 850 mg PO BIDWMEAL 30 days Tobacco use date assessed: 11/11/24 Dental Screening Dental Screen Date: 11/11/24 Did you have a dental visit in the last 12 months?: No Did you have a dental problem in the last 6 months where you did not have access to dental care?: No Was dental information given to patient?: Yes HPI HPI Comments History of Present Illness Details 43-year-old male presents for hypertensi on, diabetes, and dyslipidemia follow-up. He notes that he has been inconsistent with taking Trulicity due to adverse reaction of persistent belching since dose increased from 0.75 mg to 1.5 mg weekly. He has been taking his other medications as prescribed without adverse reactions. He has been making healthy dietary changes and walking regularly. He offers no complaints and denies acute symptoms at this time. 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 Cognitive needs: No Hearing needs: No Vision needs: No Questionnaire Thrive Questionnaire Date Thrive assessed: 08/12/24 I am a: Patient What is your living situation today?: I have a steady place to live Within the past 12 months, did the food you bought not last and you didn't have the money to get more?: Never true Within the past 12 months, did you worry whether your food would run out before you got money to buy more?: Never true Do you have trouble paying for medicines?: No Do you have trouble getting transportation to medical appointments?: No Do you have trouble paying your heating and electricity bill?: No Do you have trouble taking care of your child, family member or friend?: No Do you have trouble with day-to-day activities such as bathing, preparing meals, shopping, managing finances, etc.?: No Are you currently unemployed and looking for a job?: No Are you interested in more education?: Yes Please select the resources that you would like help with: None Currently or been in a relationship where the following occur: No concerns reported THRIVE Score: 0 URIEL-7 AMB Questionnaire URIEL-7 Date URIEL - 7 assessed: 08/12/24 Source: Developed by Drs. Fran Pastrana, Ana Urbina, Abe Gaitan and colleagues, with an educational deann from [employer]. Review of Systems Const Details: Const Denies chills, Denies fatigue, Denies fever(s), Denies headache(s) and Denies weakness ENT Denies dizziness and Denies headache(s) Card Denies chest pain, Denies lightheadedness, Denies dyspnea and Denies other (Palpitations) Resp Denies cough, Denies dyspnea, Denies wheezing and Denies other ( shortness of breath) GI Denies abdominal pain, Denies melena, Denies hematochezia, Denies change in bowel habits, Denies dyspepsia and Denies nausea Denies hematuria and Denies dysuria Musc Denies abnormal gait, Denies myalgias, Denies arthralgias, Denies numbness and Denies tingling Skin/Breast Denies rash, Denies unusual bruising and Denies wounds Neuro Denies abnormal gait, Denies dizziness, Denies headache(s), Denies memory loss, Denies numbness, Denies Sensory deficit (Neuro), Denies tingling and Denies w eakness Psych Denies anxiety, Denies depression, Denies memory loss Endo Denies cold intolerance, Denies fatigue, Denies heat intolerance, Denies poly dipsia and Denies polyuria Aller/Immun Denies wheezing Physical exam (Primary Care) Vital Signs: Last Vital Signs Temp 98.0 F 11/11/24 11:43 Pulse 73 11/11/24 11:43 Resp 16 11/11/24 11:43 BP 133/79 11/11/24 11:43 Pulse Ox 98 11/11/24 11:43 Oxygen Delivery Method Room Air 11/11/24 11:43 BMI result Body Mass Index 43.3 Tobacco/Smoking Status: Tobacco use Status Tobacco use date assessed 11/11/24 11/11/24 11:46 Patient Tobacco Use Status Never used Tobacco 11/11/24 11:41 e-Cigarette/Vaping Use Never Used 11/11/24 11:41 Thrive Assessment: Date of Thrive Assessment Date Thrive assessed 08/12/24 11/11/24 11:41 Currently or been in a relationship where the following occur: No concerns reported Const Other: General: no acute distress and well developed Nutritional Appearance: well nourished Orientation/consciousness: patient oriented x3 HENMT Head: Yes normocephalic and Yes atraumatic Eyes General: appearance normal, both eyes and all related structures Pupils: Equal, round and reactive pupils present EOM: EOMs intact bilaterally Resp Effort & Inspection: normal respiratory effort Auscultation: clear to auscultation bilaterally Cardio Rate: regular rate Rhythm: regular rhythm Heart sounds: S1 normal heart sound present, S2 normal heart sound present, no gallops, no murmurs and no rubs GI Palpation (GI): No Abdominal aortic bruit present, Soft to palpation, nontender, No hepatosplenomegaly present and No Rebound tenderness present Auscultation: normal bowel sounds General: Yes no CVA tenderness Back/Spine/Pelvis Back: no CVA tenderness Cervical Spine: cervical ROM normal and No Cervical spine tenderness Thoracic/Lumbar Spine: thoraco-lumbar ROM normal, No pain with thoraco-lumbar ROM, No thoracic spinal tenderness and No lumbar spinal tenderness Extrem General: Yes normal to inspection, No edema and No calf tenderness Skin General: warm and dry. Normal skin color. Normal skin turgor Neuro General: patient oriented x3, gait normal and no focal neuro deficit Cranial nerves: Yes Equal, round and reactive pupils present Cognition (Neuro): normal cognition Gait exam (Neuro): Normal gait present Sensory Exam: No Sensory deficit (Neuro) Psych Appearance: grossly normal Affect: normal affect Attitude: cooperative Thought process: Normal thought process present Results AMB Hemoglobin A1c AMB Hemoglobin A1c 7.6 % Last Edit by Rosi Oreilly MA on 11/11/24 12:12 Coding Level of Care Code Est Pt Level 3 (69036) Diagnoses Type 2 diabetes mellitus without complication, without long-term current use of insulin E11.9 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 Previous A1c was 7.0%. He has been consistent with taking Trulicity due to adverse reaction of persistent belching with the 1.5 mg dose. He did not experienced such adverse reaction with the 0.75 mg dose. Will decrease Trulicity to 0.75 mg weekly; advised to take as prescribed. Will increase metformin from 850 mg twice daily to 1000 mg twice daily; advised to take as prescribed. ADA diet and routine exercise encouraged. Follow-up in 3 months or sooner with symptoms or concerns. Verbalized understanding and agreed with the plan. (2) Hypertension: Code(s): I10 - Essential (primary) hypertension Category: Medical Qualifiers: Hypertension type: primary hypertension Qualified Code(s): I10 - Essent ial (primary) hypertension Plan: Resting blood pressure is 133/79, slightly above goal of less than 130/80. Continue current treatment regimen. Low-sodium diet encouraged. Follow-up in 3 months. Verbalized understanding and agreed with the plan. (3) Dyslipidemia: Code(s): E78.5 - Hyperlipidemia, unspecified Category: Medical Plan: Recent LDL level is slightly elevated, 101, goal is less than 100. Triglycerides, total cholesterol, and HDL levels are normal. Advised to limit foods high in saturated fat and avoid foods high in trans fat. Routine exercise encouraged. Will monitor lipid panel levels annually or if presents with related symptoms or concerns. Verbalized understanding and agreed with the plan. Orders: Orders AMB Hemoglobin A1c Today Z13.9 - Encounter for screening, unspecified Medications: New metformin 1,000 mg PO BIDWMEAL 30 days 60 tabs 3RF dulaglutide (Trulicity) 0.75 mg (0.5 mL) subcut QWEEK 2 mL 4RF Refilled lisinopril 30 mg PO DAILY 30 days 30 tabs 3RF Discontinued metformin Discontinued Reason: Doctor's Order 850 mg PO BIDWMEAL 30 days 60 tabs 3RF dulaglutide (Trulicity) Discontinued Reason: Doctor's Order 1.5 mg (0.5 mL) subcut QWEEK 2 mL 3RF
[2024-11-11 11:43] VITALS: BP 133/79; PULSE 73; RESP 16; TEMP 36.7; O2SAT 98; BMI 43.3
== END 2024-11-11 12:24 | disposition home or self-care (01) ==
LOC: HO.HMCFM 11:37
PROVIDERS: PCP Nurse Practitioner Family; Visit Provider Nurse Practitioner Family
DX: E11.9 Type 2 diabetes mellitus without complications (principal); I10 Essential (primary) hypertension; E78.5 Hyperlipidemia, unspecified; Z13.9 Encounter for screening, unspecified

== ENCOUNTER → 2024-11-11 11:36 | Outpatient (BNVA) | payer OTHER, SELFPAY | PROVIDERS: PCP Nurse Practitioner Family; Visit Provider Nurse Practitioner Family | DX: E11.9 Type 2 diabetes mellitus without complications (principal); I10 Essential (primary) hypertension; E78.5 Hyperlipidemia, unspecified; Z79.84 Long term (current) use of oral hypoglycemic drugs | CPT/HCPCS: 83036 ==

== ENCOUNTER 2025-02-13 09:57 | Outpatient (AMB) | payer OTHER, SELFPAY ==
--- NOTE | 2025-02-13 10:01 | MHC.PC.OV ---
Vital Signs 02/13/25 10:04 Height 5 ft 10 in Weight 302 lb 1 oz BMI 43.3 BP 120/88 Blood Pressure Location Rt brachial Position Sitting Respiration 16 Pulse 84 Pulse Source Pulse Oximeter Temp 97.5 F Temp Source Temporal Artery Scan Pulse Oximetry (%) 95 Oxygen Delivery Method Room Air Intake Visit Reasons: 3 mos HTN, DM Intake Note: Will presents in the office today for a 3 month follow up to hypertension and diabetes. Allergies sulfamethoxazole (From Bactrim) Adverse Reaction (Mild, Verified 02/13/25 10:03) Palpitations trimethoprim (From Bactrim) Adverse Reaction (Mild, Verified 02/13/25 10:03) Palpitations Tobacco use date assessed: 02/13/25 Dental Screening Dental Screen Date: 02/13/25 Did you have a dental visit in the last 12 months?: No Did you have a dental problem in the last 6 months where you did not have access to dental care?: No Was dental information given to patient?: Yes HPI HPI Comments History of Present Illness Details 44-year-old male presents for hypertension and diabetes follow-up. He admits to taking his medications as prescribed without adverse reactions. He notes that he has been making healthy lifestyle changes. He offers no complaints and denies acute symptoms at this time. 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 Cognitive needs: No Hearing needs: No Vision needs: No Questionnaire Thrive Questionnaire Date Thrive assessed: 08/12/24 I am a: Patient What is your living situation today?: I have a steady place to live Within the past 12 months, did the food you bought not last and you didn't have the money to get more?: Never true Within the past 12 months, did you worry whether your food would run out before you got money to buy more?: Never true Do you have trouble paying for medicines?: No Do you have trouble getting transportation to medical appointments?: No Do you have trouble paying your heating and electricity bill?: No Do you have trouble taking care of your child, family member or friend?: No Do you have trouble with day-to-day activities such as bathing, preparing meals, shopping, managing finances, etc.?: No Are you currently unemployed and looking for a job?: No Are you interested in more education?: Yes Please select the resources that you would like help with: None Currently or been in a relationship where the following occur: No concerns reported THRIVE Score: 0 URIEL-7 AMB Questionnaire URIEL-7 Date URIEL - 7 assessed: 08/12/24 Source: Developed by Drs. Fran Pastrana, Ana Urbina, Abe Gaitan and colleagues, with an educational deann from [employer]. Review of Systems Const Details: Const Denies chills, Denies fatigue, Denies fever(s), Denies headache(s) and Denies weakness ENT Denies dizziness and Denies headache(s) Card Denies chest pain, Denies lightheadedness, Denies dyspnea and Denies other (Palpitations) Resp Denies cough, Denies dyspnea, Denies wheezing and Denies other ( shortness of breath) GI Denies abdominal pain, Denies melena, Denies hematochezia, Denies change in bowel habits, Denies dyspepsia and Denies nausea Denies hematuria and Denies dysuria Musc Denies abnormal gait, Denies myalgias, Denies arthralgias, Denies numbness and Denies tingling Skin/Breast Denies rash, Denies unusual bruising and Denies wounds Neuro Denies abnormal gait, Denies dizziness, Denies headache(s), Denies memory loss, Denies numbness, Denies Sensory deficit (Neuro), Denies tingling and Denies weakness Psych Denies anxiety, Denies depression, Denies memory loss Endo Denies cold intolerance, Denies fatigue, Denies heat intolerance, Denies polydipsia and Denies polyuria Aller/Immun Denies wheezing Physical exam (Primary Care) Vital Signs: Last Vital Signs Temp 97.5 F 02/13/25 10:04 Pulse 84 02/13/25 10:04 Resp 16 02/13/25 10:04 BP 120/88 02/13/25 10:04 Pulse Ox 95 02/13/25 10:04 Oxygen Delivery Method Room Air 02/13/25 10:04 BMI result Body Mass Index 43.3 Tobacco/Smoking Status: Tobacco use Status Tobacco use date assessed 02/13/25 02/13/25 10:04 Patient Tobacco Use Status Never used Tobacco 02/13/25 10:04 e-Cigarette/Vaping Use Never Used 02/13/25 10:04 Thrive Assessment: Date of Thrive Assessment Date Thrive assessed 08/12/24 02/13/25 10:02 Currently or been in a relationship where the following occur: No concerns reported Const Other: General: no acute distress and well developed Nutritional Appearance: well nourished Orientation/consciousness: patient oriented x3 HENMT Head: Yes normocephalic and Yes atraumatic Eyes General: appearance normal, both eyes and all related structures Pupils: Equal, round and reactive pupils present EOM: EOMs intact bilaterally Resp Effort & Inspection: normal respiratory effort Auscultation: clear to auscultation bilaterally Cardio Rate: regular rate Rhythm: regular rhythm Heart sounds: S1 normal heart sound present, S2 normal heart sound present, no gallops, no murmurs and no rubs GI Palpation (GI): No Abdominal aortic bruit present, Soft to palpation, nontender, No hepatosplenomegaly present and No Rebound tenderness present Auscultation: normal bowel sounds General: Yes no CVA tenderness Back/Spine/Pelvis Back: no CVA tenderness Cervical Spine: cervical ROM normal and No Cervical spine tenderness Thoracic/Lumbar Spine: thoraco-lumbar ROM normal, No pain with thoraco-lumbar ROM, No thoracic spinal tenderness and No lumbar spinal tenderness Extrem General: Yes normal to inspection, No edema and No calf tenderness Skin General: warm and dry. Normal skin color. Normal skin turgor Neuro General: patient oriented x3, gait normal and no focal neuro deficit Cranial nerves: Yes Equal, round and reactive pupils present Cognition (Neuro): normal cognition Gait exam (Neuro): Normal gait present Sensory Exam: No Sensory deficit (Neuro) Psych Appearance: grossly normal Affect: normal affect Attitude: cooperative Thought process: Normal thought process present Results AMB Hemoglobin A1c AMB Hemoglobin A1c 7.9 % Last Edit by Ya Lea MA on 02/13/25 10:17 Coding Level of Care Code Est Pt Level 4 (02587) Diagnoses Type 2 diabetes mellitus without complication, without long-term current use of insulin E11.9 Diabetes mellitus usp insulin use: without intermediate project manager use Primary hypertension I10 Hypertension type: primary hypertension Assessment & Plan Assessment & Plan (1) Type 2 diabetes mellitus without complications: Code(s): E11.9 - Type 2 diabetes mellitus without complications Category: Medical Qualifiers: Diabetes mellitus intermediate project manager insulin use: without intermediate project manager use Qualified Code(s): E11.9 - Type 2 diabetes mellitus without complications Plan: A1c today is 7.9%. Previous A1c was 7.6%. Trulicity was decreased to 0.75 mg at his last visit due to persistent belching with the 1.5 mg dose. He does not wish to increase Trulicity at this time. Glipizide 5 mg daily ordered; advised to take as prescribed and 30 minutes to an hour before breakfast. Continue to take metformin and Trulicity as prescribed. ADA diet and routine exercise encouraged. Recent LDL in November was 101, goal is less than 70. Advised to limit foods high in saturated fat and avoid foods high in trans fat. Fast for 10-12 hours, may drink water, and perform lipid panel blood work a few days before next visit. Follow-up in 3 months or sooner with symptoms or concerns. Verbalized understanding and agreed with the plan. (2) Hypertension: Code(s): I10 - Essential (primary) hypertension Category: Medical Qualifiers: Hypertension type: primary hypertension Qualified Code(s): I10 - Essential (primary) hypertension Plan: Resting blood pressure is 120/88, slightly above goal of less than 130/80. Continue current treatment regimen. Low-sodium diet and routine exercise encouraged. Follow-up in 3 months. Verbalized understanding and agreed with the plan. Orders: Orders Lipid Panel Today E11.9 - Type 2 diabetes mellitus without complications, E78.5 - Hyperlipidemia, unspecified AMB Hemoglobin A1c Today E11.9 - Type 2 diabetes mellitus without complications Medications: New glipizide 5 mg PO DAILY 30 tabs 3RF 30 days Refilled dulaglutide (Trulicity) 0.75 mg (0.5 mL) subcut QWEEK 2 mL 4RF
[2025-02-13 10:04] VITALS: BP 120/88; PULSE 84; RESP 16; TEMP 36.4; O2SAT 95; BMI 43.3
== END 2025-02-13 10:22 | disposition home or self-care (01) ==
LOC: HO.HMCFM 09:58
PROVIDERS: PCP Nurse Practitioner Family; Visit Provider Nurse Practitioner Family
DX: E11.9 Type 2 diabetes mellitus without complications (principal); I10 Essential (primary) hypertension

== ENCOUNTER → 2025-02-13 09:57 | Outpatient (BNVA) | payer OTHER, SELFPAY | PROVIDERS: PCP Nurse Practitioner Family; Visit Provider Nurse Practitioner Family | DX: I10 Essential (primary) hypertension (principal); E11.9 Type 2 diabetes mellitus without complications; E78.5 Hyperlipidemia, unspecified | CPT/HCPCS: 83036 ==

== ENCOUNTER 2025-05-26 08:30 | Outpatient (AMB) | payer OTHER, SELFPAY ==
--- NOTE | 2025-05-26 08:34 | A.OFFPC_ITS ---
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 Lineman Required: No Allergies sulfamethoxazole (From Bactrim) Adverse Reaction (Mild, Verified 05/26/25 08:48) Palpitations trimethoprim (From Bactrim) Adverse Reaction (Mild, Verified 05/26/25 08:48) Palpitations Medication List - Last Reconciled 05/26/25 by Lanny Bro CNP blood sugar diagnostic (FreeStyle Lite Strips) As directed TID blood-glucose meter (FreeStyle Lite Meter kit) As directed dulaglutide (Trulicity) 0.75 mg (0.5 mL) subcut QWEEK glipizide 5 mg PO DAILY 30 days lancets (FreeStyle Lancets) As directed lisinopril 30 mg PO DAILY 30 days metformin 1,000 mg PO BIDWMEAL 30 days Tobacco use date assessed: 05/26/25 Dental Screening Dental Screen Date: 05/26/25 Did you have a dental visit in the last 12 months?: No Did you have a dental problem in the last 6 months where you did not have access to dental care?: No Was dental information given to patient?: Yes HPI HPI Comments History of Present Illness Details 44-year-old male presents for hypertensi on and diabetes follow-up. He admits to taking his medications as prescribed without adverse reactions. He notes that he has been making healthy dietary changes. He is active but does not exercise. He offers no complaints and denies acute symptoms at this time. He did not perform lipid panel blood work for this visit as planned. 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 Cognitive needs: No Hearing needs: No Vision needs: No Questionnaire Thrive Questionnaire Date Thrive assessed: 08/12/24 I am a: Patient What is your living situation today?: I have a steady place to live Within the past 12 months, did the food you bought not last and you didn't have the money to get more?: Never true Within the past 12 months, did you worry whether your food would run out before you got money to buy more?: Never true Do you have trouble paying for medicines?: No Do you have trouble getting transportation to medical appointments?: No Do you have trouble paying your heating and electricity bill?: No Do you have trouble taking care of your child, family member or friend?: No Do you have trouble with day-to-day activities such as bathing, preparing meals, shopping, managing finances, etc.?: No Are you currently unemployed and looking for a job?: No Are you interested in more education?: Yes Please select the resources that you would like help with: None Currently or been in a relationship where the following occur: No concerns reported THRIVE Score: 0 URIEL-7 AMB Questionnaire URIEL-7 Date URIEL - 7 assessed: 08/12/24 Source: Developed by Drs. Fran Pastrana, Ana Urbina, Abe Gaitan and colleagues, with an educational deann from [employer]. Review of Systems Const Details: Const Denies chills, Denies fatigue, Denies fever(s), Denies headache(s) and Denies weakness ENT Denies dizziness and Denies headache(s) Card Denies chest pain, Denies lightheadedness, Denies dyspnea and Denies other (Palpitations) Resp Denies cough, Denies dyspnea, Denies wheezing and Denies other ( shortness of breath) GI Denies abdominal pain, Denies melena, Denies hematochezia, Denies change in bowel habits, Denies dyspepsia and Denies nausea Denies hematuria and Denies dysuria Musc Denies abnormal gait, Denies myalgias, Denies arthralgias, Denies numbness and Denies tingling Skin/Breast Denies rash, Denies unusual bruising and Denies wounds Neuro Denies abnormal gait, Denies dizziness, Denies headache(s), Denies memory loss, Denies numbness, Denies Sensory deficit (Neuro), Denies tingling and Denies weakness Psych Denies anxiety, Denies depression, Denies memory loss Endo Denies cold intolerance, Denies fatigue, Denies heat intolerance, Denies polydipsia and Denies polyuria Aller/Immun Denies wheezing Physical exam (Primary Care) Vital Signs: Last Vital Signs Temp 97.7 F 05/26/25 08:40 Pulse 76 05/26/25 08:40 Resp 16 05/26/25 08:40 BP 147/81 H 05/26/25 08:40 Pulse Ox 96 05/26/25 08:40 Oxygen Delivery Method Room Air 05/26/25 08:40 BMI result Body Mass Index 44.6 Tobacco/Smoking Status: Tobacco use Status Tobacco use date assessed 05/26/25 05/26/25 08:45 Patient Tobacco Use Status Never used Tobacco 05/26/25 08:35 e-Cigarette/Vaping Use Never Used 05/26/25 08:35 Thrive Assessment: Date of Thrive Assessment Date Thrive assessed 08/12/24 05/26/25 08:35 Currently or been in a relationship where the following occur: No concerns reported Const Other: General: no acute distress and well developed Nutritional Appearance: well nourished Orientation/consciousness: patient oriented x3 [facility] Head: Yes normocephalic and Yes atraumatic Eyes General: appearance normal, both eyes and all related structures Pupils: Equal, round and reactive pupils present EOM: EOMs intact bilaterally Resp Effort & Inspection: normal respiratory effort Auscultation: clear to auscultation bilaterally Cardio Rate: regular rate Rhythm: regular rhythm Heart sounds: S1 normal heart sound present, S2 normal heart sound present, no gallops, no murmurs and no rubs Extrem General: Yes normal to inspection, No edema and No calf tenderness Skin General: warm and dry. Normal skin color. Normal skin turgor Neuro General: patient oriented x3, gait normal and no focal neuro deficit Cranial nerves: Yes Equal, round and reactive pupils present Cognition (Neuro): normal cognition Gait exam (Neuro): Normal gait present Sensory Exam: No Sensory deficit (Neuro) Psych Appearance: grossly normal Affect: normal affect Attitude: cooperative Thought process: Normal thought process present Results AMB Hemoglobin A1c AMB Hemoglobin A1c 7.8 % Last Edit by BRITTANY Blake on 05/26/25 09:16 Coding Level of Care Code Est Pt Level 3 (70711) Diagnoses Primary hypertension I10 Hypertension type: primary hypertension Type 2 diabetes mellitus without complications E11.9 Morbid obesity with BMI of 40.0-44.9, adult E66.01; Z68.41 Assessment & Plan Assessment & Plan (1) Hypertension: Code(s): I10 - Essential (primary) hypertension Category: Medical Qualifiers: Hypertension type: primary hypertension Qualified Code(s): I10 - Essential (primary) hypertension Plan: Resting blood pressure is 130/86, slightly above goal of less than 130/80. Continue current treatment regimen. Weight management and low-sodium diet encouraged. Follow-up in 3 months for transfer of care with a new provider within the practice. Return sooner with symptoms or concerns. Verbalized understanding and agreed with the plan. (2) Type 2 diabetes mellitus without complications: Code(s): E11.9 - Type 2 diabetes mellitus without complications Category: Medical Plan: A1c today is 7.8%, above goal of less than 7.0%. Previous A1c was 7.9%. Will increase glipizide to 10 mg daily; advised to take as prescribed. He had adverse reaction to Trulicity was increased to 1.5 mg weekly. Continue current treatment regimen. ADA diet and routine exercise encouraged. Will recheck A1c in 3 months. Encouraged to perform fasting lipid panel blood work a few days before next visit. Verbalized understanding and agreed with the plan. (3) Morbid obesity with BMI of 40.0-44.9, adult: Code(s): E66.01 - Morbid (severe) obesity due to excess calories; Z68.41 - Body mass index [BMI] 40.0-44.9, adult Category: Medical Plan: He gained 9 lb since his last visit 3 months ago. He currently weighs 311 lb, BMI is 44.6. Declines referral to ice cream dispenser/dietitian or weight management clinic and states that he will continue to make healthy lifestyle changes. Healthy diet and routine exercise encouraged. Follow-up as needed. Verbalized understanding and agreed with the plan. Orders: Orders AMB Hemoglobin A1c Today Z13.9 - Encounter for screening, unspecified Medications: New glipizide 10 mg PO DAILY 30 tabs 3RF 30 days Discontinued glipizide Discontinued Reason: Doctor's Order 5 mg PO DAILY 30 days 30 tabs 3RF
[2025-05-26 08:40] VITALS: BP 147/81; PULSE 76; RESP 16; TEMP 36.5; O2SAT 96; BMI 44.6
[2025-05-26 08:55] VITALS: BP 130/86
== END 2025-05-26 09:22 | disposition home or self-care (01) ==
LOC: HO.HMCFM 08:31
PROVIDERS: PCP Nurse Practitioner Family; Visit Provider Nurse Practitioner Family
DX: I10 Essential (primary) hypertension (principal); E11.9 Type 2 diabetes mellitus without complications; E66.01 Morbid (severe) obesity due to excess calories; Z68.41 Body mass index [BMI] 40.0-44.9, adult; Z13.9 Encounter for screening, unspecified

== ENCOUNTER → 2025-05-26 08:30 | Outpatient (BNVA) | payer OTHER, SELFPAY | PROVIDERS: PCP Nurse Practitioner Family; Visit Provider Nurse Practitioner Family | DX: I10 Essential (primary) hypertension (principal); E11.9 Type 2 diabetes mellitus without complications; E66.01 Morbid (severe) obesity due to excess calories; Z68.41 Body mass index [BMI] 40.0-44.9, adult | CPT/HCPCS: 83036 ==